=== PATIENT | female | born 1940 | race Caucasian/White ===

== ENCOUNTER 2024-12-27 09:10 | Outpatient (AMB) | payer MEDICARE, SELFPAY ==
--- NOTE | 2024-12-27 09:34 | AM.OFFWIN_ITS ---
Intake Vital Signs 12/27/24 09:41 Height 5 ft 5 in Weight 143 lb 6 oz BMI 23.9 BP 112/67 Blood Pressure Location Rt brachial Position Sitting Respiration 12 Pulse 76 Pulse Source Pulse Oximeter Temp 97.6 F Temp Source Oral Pulse Oximetry (%) 97 Oxygen Delivery Method Room Air Intake Visit Reasons: Pain right arm Intake Note: Patient c/o right arm can't move in the morning since September. Patient Tobacco Use Status: Never used Tobacco Juice Weigher Required: No Allergies codeine Allergy (Severe, Verified 12/27/24 09:50) Unknown tramadol Allergy (Severe, Verified 12/27/24 09:50) Unknown Medication List - Last Reconciled 12/27/24 by Sandra Jeffers, [employer] SERVICE ATTENDANT- albuterol sulfate 90 mcg/actuation 2 puffs inhalation Q4H PRN chlorthalidone 12.5 mg PO QAM levothyroxine 112 mcg PO DAILY lisinopril 30 mg PO DAILY omeprazole 40 mg PO DAILY umeclidinium-vilanterol 62.5-25 mcg/actuation (Anoro Ellipta) 1 ea inhalation DAILY Do you need a note to return to daycare/school/sports/work: No HPI HPI Comments History of Present Illness Details History of Present Illness - The patient is an 84-year-old female w ith HTN presenting with right arm inability to move since Sep with no overt injury. - She reports stiffness of the right upp er arm early in the morning, improving as the day progresses. - Onset of symptoms began in September, w ith no associated injury, though overuse from frequent word game activities?two to three hours per day?is considered. - Patient reports some discomfort in the left arm, but it's less significant. - She hasn?t used medications specifical ly for this issue. Denies any assoc or alarming sx. Also c/o runny nose d/t allergies. Wonders what she can take OTC. HTN well controlled on current meds. Physical Exam General: Well developed, well nourished, in no acute distress. Appears stated age. Accompanied by Dtr Head: Normocephalic, atraumatic. Eyes: Pupils are equal, round and reactive to light and accommodation. Conjunctivae are clear. Vision grossly normal. Musculoskeletal: BUE neurovasc intact, L arm: Tenderness noted at the biceps insertion as it goes into the deltoid. Limited range of motion in the right shoulder, active w/ passive. Normal strength and tone, No swelling, redness, or effusions in other joints. Limited mobility of the L shoulder about the same, but she does not offer pain. Discussion Notes I discussed that the patient's symptoms are consistent with adhesive capsulitis, likely due to a combination of factors including age, overuse, and possible inflammation. I explained that adhesive capsulitis results in stiffness and pain in the shoulder joint and is common in individuals of her demographic. I reviewed potential interventions, advising a cortisone injection for anti- inflammatory relief along with physical therapy to improve range of motion and prevent further joint stiffness. I recommended visiting [facility] for the injection and suggested [facility]. I ensured she understood that the injection could quickly reduce inflammation, while physical therapy would sustain the improvements. We also discussed the use of Voltaren for short-term discomfort relief, though it wouldn't address the underlying cause. Regarding her nasal allergy symptoms, I suggested Flonase as an effective treatment option. I encouraged her to print any referrals to ensure timely appointments and provided contact details for [facility] for convenient access. Assessment and Plan 1. Adhesive Capsulitis (Frozen Shoulder) The diagnosis involves significant joint stiffness likely as a result of adhesive capsulitis. The plan includes a cortisone injection at [facility] to decrease inflammation, complemented with physical therapy to enhance arm mobility and prevent joint stiffness recurrence. We noted the potential temporary benefit of Voltaren for managing discomfort. 2. Nasal Allergies The patient exhibits classic symptoms of nasal allergies. Flonase is recommended to manage nasal congestion effectively. I emphasized compliance despite personal reluctance toward medications to ensure symptom control. 3. HTN cont meds Patient Instructions - Consider visiting [facility] for a cortisone injection. They have a walk-in clinic; call ahead to confirm hours. - Start physical therapy to help improve the shoulder condition. Follow up directly with [facility] for scheduling. - Use Voltaren cream at home as needed f or minor pain relief. - For nasal allergies, use Flonase nasal spray daily. Consent Patient was informed and verbally consented to the use of an ambient scribe for clinic note documentation during this visit. [facility] Social History Patient Tobacco Use Status: Never used Tobacco Physical Exam Vital Signs: Last Vital Signs Temp 97.6 F 12/27/24 09:41 Pulse 76 12/27/24 09:41 Resp 12 12/27/24 09:41 BP 112/67 12/27/24 09:41 Pulse Ox 97 12/27/24 09:41 Oxygen Delivery Method Room Air 12/27/24 09:41 BMI result Body Mass Index 23.9 Assessment & Plan Assessment & Plan (1) Frozen shoulder syndrome: Code(s): M75.00 - Adhesive capsulitis of unspecified shoulder Qualifiers: Laterality: right Qualified Code(s): M75.01 - Adhesive capsulitis of right shoulder (2) Allergic rhinitis: Code(s): J30.9 - Allergic rhinitis, unspecified Qualifiers: Allergic rhinitis trigger: other Allergic rhinitis seasonality: seasonal Qualified Code(s): J30.89 - Other allergic rhinitis (3) HTN (hypertension): Code(s): I10 - Essential (primary) hypertension Qualifiers: Hypertension type: primary hypertension Qualified Code(s): I10 - Essential (primary) hypertension Plan . Orders: Orders PT Evaluation and Treatment Today M75.00 - Adhesive capsulitis of unspecified shoulder Patient Instructions: [facility] [address] [place] [address] call for the walk in clinic and go there for cortisone injection Patient Instructions - Consider visiting [facility] for a cortisone injection. They have a walk-in clinic; call ahead to confirm hours. - Start physical therapy to help improve the shoulder condition. Follow up directly with [facility] for scheduling. - Use Voltaren cream at home as needed for minor pain relief. - For nasal allergies, use Flonase nasal spray daily. Coding Level of Care Code Est Pt Level 4 (77904) Diagnoses Adhesive capsulitis of right shoulder M75.01 Laterality: right Seasonal allergic rhinitis due to other allergic trigger J30.89 Allergic rhinitis trigger: other Allergic rhinitis seasonality: seasonal Primary hypertension I10 Hypertension type: primary hypertension
[2024-12-27 09:41] VITALS: BP 112/67; PULSE 76; RESP 12; TEMP 36.4; O2SAT 97; BMI 23.9
== END 2024-12-27 10:05 | disposition home or self-care (01) ==
PROVIDERS: Visit Provider Nurse Practitioner Family
DX: M75.01 Adhesive capsulitis of right shoulder (principal); J30.89 Other allergic rhinitis; I10 Essential (primary) hypertension

== ENCOUNTER → 2024-12-27 09:10 | Outpatient (BNVA) | payer MEDICARE, SELFPAY | DX: M75.01 Adhesive capsulitis of right shoulder (principal); J30.89 Other allergic rhinitis; I10 Essential (primary) hypertension | CPT/HCPCS: 99212 ==

== ENCOUNTER 2025-04-19 11:08 | Outpatient (AMB) | payer MEDICARE, SELFPAY ==
--- NOTE | 2025-04-19 11:13 | A.OFFPC_ITS ---
Vital Signs 04/19/25 11:21 Height 5 ft 5 in Weight 135 lb 2 oz BMI 22.5 BP 108/59 L Blood Pressure Location Lt brachial Position Sitting Respiration 16 Pulse 76 Pulse Source Pulse Oximeter Temp 97.7 F Temp Source Oral Pulse Oximetry (%) 95 Oxygen Delivery Method Room Air Intake Visit Reasons: est care/medication refill/Thyroid issues Intake Note: patient here for new patient visit, she needs med refills and has thyroid issues Nurse Midwife Required: No Accompanied by: Daughter Is last menstrual period known: No Post menopausal: No Patient : No Allergies codeine Allergy (Severe, Verified 04/19/25 11:32) Unknown tramadol Allergy (Severe, Verified 04/19/25 11:32) Unknown Medication List - Last Reconciled 04/19/25 by Clotilde Villarreal CNP albuterol sulfate 90 mcg/actuation 2 puffs inhalation Q4H PRN chlorthalidone 12.5 mg PO QAM levothyroxine 112 mcg PO DAILY lisinopril 30 mg PO DAILY omeprazole 40 mg PO DAILY umeclidinium-vilanterol 62.5-25 mcg/actuation (Anoro Ellipta) 1 ea inhalation DAILY Tobacco use date assessed: 04/19/25 Fall risk assessment: No Falls in past year Last assessed Fall Risk: 04/19/25 Dental Screening Dental Screen Date: 04/19/25 Did you have a dental visit in the last 12 months?: Yes Did you have a dental problem in the last 6 months where you did not have access to dental care?: No Was dental information given to patient?: Patient has dentist HPI HPI Comments History of Present Illness Details 85-year-old female, accompanied by her abi yuan, presents [facility]. She admits to taking her medications as prescribed without adverse reactions. Prior PCP? - Dr. George Last office visit/CPE/labs - 9-12 months ago Acute issue(s) - She reports right ear congestion and i mpaired hearing. Her symptoms have been ongoing intermittently since the beginning of February Past Medical History - HTN, radioactive iodine therapy for hy perthyroidism, post LOPEZ hypothyroidism, COPD, GERD, arthritis right knee, dupuytren's contracture both hands, esophageal surgery to correct GERD Surgical History - Dupuytren's contracture release both h ands, surgery of esophagus to improve GERD (? fundoplication) Family History - PGM: Mental illness (unknown...was hos pitalized) Social History - Former smoker, smoked less than 10 gracy ly, quit 15 years ago. Does not vape. She has never drank alcohol. Denies recreational drug use - Has been making healthy dietary choice s. Active but does not exercise. Generally sleep well Health maintenance - Last eye exam was [address] Manav Lopez. Advise to sign release for her PCP to obtain her ophthalmology record - Last dental visit was 5 months ago - Last tetanus vaccine was more than 10 years ago; will receive Tdap at her next visit for blood work - She notes that she is up-to-date on e shingles and PNA vaccines. Record not currently available - She notes that she is up-to-date on e flu vaccine - Last pap smear test was 15 years ago w [facility]: normal. She no longer performs pap smear test - Last mammogram was 15 years ago with [facility]: normal. She no longer performs mammogram - Last colonoscopy was 15 years ago with [facility]: normal. She no longer performs colonoscopy - Last dexa scan was 15 years ago with [facility]: normal. Dexa scan ordered Specialists - [facility] - yearly [facility] Medical History (Updated 04/19/25 @ 12:31 by Clotilde Villarreal CNP) Arthritis of right knee Dupuytren's contracture of both hands Acid reflux H/O thyroid disease COPD (chronic obstructive pulmonary disease) Family History (Updated 04/19/25 @ 11:21 by Maci Raza MA) Paternal Grandfather FH: mental illness Social History (Updated 04/19/25 @ 11:21 by Maci Raza MA) Housing: House Patient Tobacco Use Status: Never used Tobacco e-Cigarette/Vaping Use: Never Used Second Hand Smoke Exposure: No service: No Current occupational status: retired Current occupational exposures/hazards: No Cognitive needs: No Hearing needs: No Vision needs: Yes Questionnaire PHQ-9 Over the last 2 weeks, how often have you been bothered by any of the following problems? 1. Little interest or pleasure in doing things: not at all 2. Feeling down, depressed, or hopeless: not at all 3. Trouble falling or staying asleep, or sleeping too much: not at all 4. Feeling tired or having little energy: several days 5. Poor appetite or overeating: several days 6. Feeling bad about yourself - or that you are a failure or have let yourself or your family down: not at all 7. Trouble concentrating on things, such as reading the newspaper or watching television: not at all 8. Moving or speaking so slowly that other people could have noticed. Or the opposite - being so fidgety or restless that you have been moving around a lot more than usual: not at all 9. Thoughts that you would be better off or of hurting yourself in some way: not at all Total score: 2 Depression Screening Interpretation: Negative Depression Screening Done: Yes 40242 - PHQ-9 Billing: Yes Source: Developed by Drs. Alex Macias, Deanne Cameron, Freddy Fish and colleagues, with an educational josh from [employer] Thrive Questionnaire Date Thrive assessed: 04/19/25 I am a: Parent/Caregiver What is your living situation today?: I have a steady place to live Within the past 12 months, did the food you bought not last and you didn't have the money to get more?: Never true Within the past 12 months, did you worry whether your food would run out before you got money to buy more?: Never true Do you have trouble paying for medicines?: No Do you have trouble getting transportation to medical appointments?: No Do you have trouble paying your heating and electricity bill?: No Do you have trouble taking care of your child, family member or friend?: No Do you have trouble with day-to-day activities such as bathing, preparing meals, shopping, managing finances, etc.?: No Are you currently unemployed and looking for a job?: No Are you interested in more education?: No Please select the resources that you would like help with: None Currently or been in a relationship where the following occur: No concerns reported THRIVE Score: 0 AUDIT C Alcohol Use Questionnaire (AUDIT-C) 1. How often do you have a drink containing alcohol?: Never 3. How often do you have six or more drinks on one occasion?: Never Total Score: 0 Score Reviewed/Action Taken: Yes CLAUDE-7 AMB Questionnaire CLAUDE-7 Date CLAUDE - 7 assessed: 04/19/25 Feeling nervous, anxious, or on edge: 0 = Not at all Not being able to stop or control worryin = Not at all Worrying too much about different things: 0 = Not at all Trouble relaxin = Not at all Being so restless that it is hard to sit still: 0 = Not at all Becoming easily annoyed or irritable: 0 = Not at all Feeling afraid as if something awful might happen: 0 = Not at all Total CLAUDE-7 score (0-4 normal; 5-9 mild; 10-14 moderate; 15-21 severe): 0 Source: Developed by Drs. Alex Macias, Deanne Cameron, Freddy Fish and colleagues, with an educational josh from [employer] CLAUDE-7 Assessment Billing CLAUDE-7 Assessment Tool: CLAUDE-7 Assessment 24614 Review of Systems Const Details: Denies chills, Denies fatigue, Denies fever(s), Denies headache(s) and Denies weakness HEENT Denies right ear congestion and impaired hearing, Denies change in vision, Denies dizziness, Denies headache(s), Denies hearing loss, Denies nasal congestion, Denies sinus pain, Denies sinus pressure and Denies sore throat Card Denies chest pain, Denies lightheadedness, Denies dyspnea and Denies other (palpitations) Resp Denies cough, Denies dyspnea and Denies wheezing GI Denies abdominal pain, Denies melena, Denies hematochezia, Denies change in bowel habits, Denies dyspepsia and Denies nausea Denies hematuria and Denies dysuria Musc Denies abnormal gait, Denies myalgias, Denies arthralgias, Denies numbness and Denies tingling Skin/Breast Denies rash, Denies unusual bruising and Denies wounds Neuro Denies abnormal gait, Denies dizziness, Denies headache(s), Denies memory loss, Denies numbness, Denies Sensory deficit (Neuro), Denies tingling and Denies weakness Psych Denies anxiety, Denies depression and Denies memory loss Endo Denies cold intolerance, Denies fatigue, Denies heat intolerance, Denies polydipsia and Denies polyuria Osmany/Lymph Denies easy bleeding and Denies easy bruising Aller/Immun Denies wheezing Physical exam (Primary Care) Vital Signs: Last Vital Signs Temp 97.7 F 04/19/25 11:21 Pulse 76 04/19/25 11:21 Resp 16 04/19/25 11:21 BP 108/59 L 04/19/25 11:21 Pulse Ox 95 04/19/25 11:21 Oxygen Delivery Method Room Air 04/19/25 11:21 BMI result Body Mass Index 22.5 Tobacco/Smoking Status: Tobacco use Status Tobacco use date assessed 04/19/25 04/19/25 11:27 Patient Tobacco Use Status Never used Tobacco 04/19/25 11:21 e-Cigarette/Vaping Use Never Used 04/19/25 11:27 PHQ-9: PHQ-9 Score PHQ-9: Total score 2 04/19/25 11:17 Depression Screening Interpretation: Negative Thrive Assessment: Date of Thrive Assessment Date Thrive assessed 04/19/25 04/19/25 11:17 Currently or been in a relationship where the following occur: No concerns reported Const Other: General: no acute distress, well developed, alert and awake Nutritional Appearance: well nourished Orientation/consciousness: patient oriented x3 HENMT Head: Yes normocephalic and Yes atraumatic Ears: hearing grossly normal bilaterally and TM's normal bilaterally General nose exam: Normal external nose present and Normal nares present Mouth: Normal oral and palatal mucosa present and moist mucous membranes Teeth and gingiva: dentition normal Throat: Yes oropharynx normal Eyes Pupils: Equal, round and reactive pupils present and Pupil accommodation reflex normal EOM: EOMs intact bilaterally Neck Neck: Yes normal visual inspection, Yes no lymphadenopathy and Yes trachea midline Thyroid: Thyroid normal Carotids: no bruits Lymphatic: no lymphadenopathy noted Chest Chest palpation & inspection: normal inspection of the chest Resp Effort & Inspection: normal respiratory effort Auscultation: clear to auscultation bilaterally Cardio Rate: regular rate Rhythm: regular rhythm Heart sounds: S1 normal heart sound present, S2 normal heart sound present, no gallops, no murmurs and no rubs Bruits: no abdominal aortic bruits and no carotid bruits GI Palpation (GI): No Abdominal aortic bruit present, Soft to palpation, nontender, No hepatosplenomegaly present and No Rebound tenderness present Auscultation: normal bowel sounds General: Yes no CVA tenderness Back/Spine/Pelvis Back: no CVA tenderness Cervical Spine: cervical ROM normal and No Cervical spine tenderness Thoracic/Lumbar Spine: thoraco-lumbar ROM normal, No pain with thoraco-lumbar ROM, No thoracic spinal tenderness and No lumbar spinal tenderness Skin General: warm and dry. Normal skin color. Normal skin turgor Lesions: no lesions Rashes: no rashes Trauma: no lacerations or abrasions Wounds: no wounds Nails: normal Neuro General: patient oriented x3, gait normal and CN's II-XI intact bilaterally Cranial nerves: Yes Equal, round and reactive pupils present Cognition (Neuro): normal cognition Gait exam (Neuro): Normal gait present Motor exam (neuro): 5/5 motor strength present throughout Sensory Exam: No Sensory deficit (Neuro) Deep tendon reflexes (DTR's): Right patellar reflex intensity grade: 2+ and Left patellar reflex intensity grade: 2+ Extrem General: Yes normal to inspection, No edema and No calf tenderness Psych Appearance: grossly normal Affect: normal affect Attitude: cooperative Thought process: Normal thought process present Coding Level of Care Code New Pt Level 4 (14022) New Pt Prev Care >65yr (04628) Diagnoses Normal physical examination, routine Z00.00 Primary hypertension I10 Hypertension type: primary hypertension Congestion of right ear H93.8X1 Age-related osteoporosis without current pathological fracture M81.0 Laboratory tests ordered as part of a complete physical exam (CPE) Z00.00 Additional Codes CLAUDE-7 Assessment Billing - CLAUDE-7 Assessment Tool: CLAUDE-7 Assessment 90763 ([id number]) PHQ-9 - 70905 - PHQ-9 Billing: Yes ([id number]) Assessment & Plan Assessment & Plan (1) Normal physical examination, routine: Code(s): Z00.00 - Encounter for general adult medical examination without abnormal findings Category: Medical Plan: No significant functional limitation. Continue current treatment regimen. Healthy diet and routine exercise encouraged. Fast for 10-12 hours, may drink water, and perform blood work at least a few days before next visit. Follow-up for telehealth visit in 2-4 weeks for labs review. Return sooner with symptoms or concerns. Verbalized understanding and agreed with the plan. (2) HTN (hypertension): Code(s): I10 - Essential (primary) hypertension Category: Medical Qualifiers: Hypertension type: primary hypertension Qualified Code(s): I10 - Essential (primary) hypertension Plan: Blood pressure is 108/59, within goal of less than 140/90. Continue current treatment regimen. Low-sodium diet encouraged. Will continue to monitor. Verbalized understanding and agreed with the plan. (3) Congestion of right ear: Code(s): H93.8X1 - Other specified disorders of right ear Category: Medical Plan: Reports right ear congestion and impaired hearing. Her symptoms have been ongoing intermittently since the beginning of February. Normal exam of the right ear; no cerumen, TM is normal. Likely allergies. Will trial Zyrtec 10 mg daily; advised to take as prescribed. Follow-up with worsening or new symptoms. May refer to ENT. Verbalized understanding and agreed with the plan. (4) Age-related osteoporosis without current pathological fracture: Code(s): M81.0 - Age-related osteoporosis without current pathological fracture Category: Medical Plan: Last dexa scan was 15 years ago with [facility]: normal. Dexa scan ordered. (5) Laboratory tests ordered as part of a complete physical exam (CPE): Code(s): Z00.00 - Encounter for general adult medical examination without abnormal findings Category: Medical Plan: Fasting labs ordered as part of a complete physical exam. Advised to fast for at least 10 hours before getting labs drawn. May drink water Verbalized understanding and agreed with treatment plan. Orders: Orders Microalbumin, Random (w Creat) Today Z00.00 - Encounter for general adult medical examination without abnormal findings UA CC w/rflx Micro + Cult Today Z00.00 - Encounter for general adult medical examination without abnormal findings XR DEXA axial skeleton Today M81.0 - Age-related osteoporosis without current pathological fracture Complete Blood Count Auto Diff Today Z00.00 - Encounter for general adult medical examination without abnormal findings Comprehensive [place]. Panel Fast Today Z00.00 - Encounter for general adult medical examination without abnormal findings Lipid Panel Today Z00.00 - Encounter for general adult medical examination without abnormal findings TSH reflex Free T4 Today Z00.00 - Encounter for general adult medical examination without abnormal findings Vitamin D 25-OH Total Today Z00.00 - Encounter for general adult medical examination without abnormal findings Medications: New cetirizine (Zyrtec) 10 mg PO DAILY 30 tabs 0RF 30 days Changed From chlorthalidone 12.5 mg PO QAM To chlorthalidone 12.5 mg (1/2 x 25 mg) PO QAM 45 tabs 1RF 90 days From lisinopril 30 mg PO DAILY To lisinopril 30 mg PO DAILY 90 tabs 1RF 90 days From omeprazole 40 mg PO DAILY To omeprazole 40 mg PO DAILY 90 caps 1RF 90 days From levothyroxine 112 mcg PO DAILY To levothyroxine 112 mcg PO DAILY 90 tabs 1RF 90 days
[2025-04-19 11:21] VITALS: BP 108/59; PULSE 76; RESP 16; TEMP 36.5; O2SAT 95; BMI 22.5
--- OUTSIDE RECORDS SUMMARY | 2025-04-19 12:04 | XMS_ITS ---
Author Name [facility] Organization Unknown Care Team Organization Name Specialty Phone Email Start Date End Da te [facility] Termed, PROVIDER Primary Care 07/02/202203/25
== END 2025-04-19 12:04 | disposition home or self-care (01) ==
LOC: HO.HMCFM 11:09
PROVIDERS: PCP Nurse Practitioner Family; Visit Provider Nurse Practitioner Family
DX: I10 Essential (primary) hypertension (principal); H93.8X1 Other specified disorders of right ear; M81.0 Age-related osteoporosis without current pathological fracture

== ENCOUNTER → 2025-04-19 11:08 | Outpatient (BNVA) | payer MEDICARE, SELFPAY | PROVIDERS: PCP Nurse Practitioner Family; Visit Provider Nurse Practitioner Family | DX: Z00.00 Encounter for general adult medical examination without abnormal findings (principal); I10 Essential (primary) hypertension; M81.0 Age-related osteoporosis without current pathological fracture; H93.8X1 Other specified disorders of right ear | CPT/HCPCS: 96127; 99202 ==

== ENCOUNTER 2025-04-26 07:50 | Outpatient (REF) | payer MEDICARE, SELFPAY ==
--- OUTSIDE RECORDS SUMMARY | 2025-04-26 07:53 | XMS_ITS ---
Author Name Jill Brower Address Unknown Organization [facility] Providers [facility] [place] Name Role Phone Unavailable Primary Care Physician Unavailab le History Of Present Illness No data Allergies, Adverse Reactions, Alerts Substance RxNorm Reaction(s) Severity Status Start Da te Codeine Sulfate unspecified active traMADol HCl unspecified active Medications Medication Generic Name RxNorm Strength Strength Unit Route Dose Dose Form Frequency Date Started Date Ended Status Indication Sig Anoro Ellipta 62.5-25 mcg/actua tion Inhala tion blist er with devic e active chlorthalid one chlortha lidone 25 mg Oral one half table t once daily active HTN lisinopril 20 mg Oral table t active Clotrimazol e NULL 05/08/20 16 active Doxycycline Hyclate NULL 07/03/20 16 active Erythromyci n NULL 01/29/20 18 active Fluconazole NULL 05/08/20 16 active Latanoprost NULL 06/16/20 13 active Levothyroxi ne Sodium NULL 0.125 mg one table t daily 07/09/20 18 active hypothyroid ism Lisinopril NULL 06/22/20 14 active Nystatin NULL 05/18/20 15 active Omeprazole NULL 11/15/19 17 active Oxycodone-A cetaminophe n NULL 06/22/20 14 active Sulfamethox azole-Trime thoprim NULL 07/09/20 18 active Zostavax NULL 05/08/20 16 active Problems Problem Code Type Status Date of Diagnosis Date of Resolution Patient encounter status (finding) 461513764(S NOMED) Diagnosis active 04/21/2025 Actinic keratosis (disorder) 620516001(S NOMED) Diagnosis active 06/10/2024 Xanthelasma (disorder) 821535162(S NOMED) Diagnosis active 06/10/2024 Seborrheic keratosis (disorder) 694622129(S NOMED) Diagnosis active 06/10/2024 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 (disorder) 049377071(S NOMED) Diagnosis active 06/10/2024 History of malignant neoplasm of skin (situation) 341329750(S NOMED) Diagnosis active 06/10/2024 Epidermoid cyst of skin (disorder) 342595638(S NOMED) Diagnosis active 03/31/2024 Seborrheic keratosis (disorder) 746460318(S NOMED) Diagnosis active 06/19/2023 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 (disorder) (S NOMED) Diagnosis active 06/19/2023 History of malignant neoplasm of skin (situation) 214321478(S NOMED) Diagnosis active 06/19/2023 Xanthoma of eyelid (disorder) 5617378(SNO MED) Diagnosis active 06/06/2022 Seborrheic keratosis (disorder) 476654875(S NOMED) Diagnosis active 06/06/2022 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 (disorder) 522033822(S NOMED) Diagnosis active 06/06/2022 History of malignant neoplasm of skin (situation) 077130723(S NOMED) Diagnosis active 06/06/2022 Patient encounter status (finding) 142238938(S NOMED) Diagnosis active 11/22/2021 Actinic keratosis (disorder) 742552998(S NOMED) Diagnosis active 05/31/2021 Xanthoma of eyelid (disorder) 5139817(SNO MED) Diagnosis active 05/31/2021 History of malignant neoplasm of skin (situation) 868514889(S NOMED) Diagnosis active 05/31/2021 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 (disorder) 070484632(S NOMED) Diagnosis active 05/31/2021 Patient encounter status (finding) 222953730(S NOMED) Diagnosis active 04/12/2021 Patient encounter status (finding) 696498888(S NOMED) Diagnosis active 03/27/2021 Patient encounter status (finding) 928963533(S NOMED) Diagnosis active 12/22/2020 Encounter for procedure for purposes other than remedying health state, unspecified Z41.9(ICD-1 0) Diagnosis active 08/04/2020 Personal history of other malignant neoplasm of skin Z85.828(ICD -10) Diagnosis active 05/25/2020 Other melanin hyperpigmentation L81.4(ICD-1 0) Diagnosis active 05/25/2020 Other seborrheic keratosis L82.1(ICD-1 0) Diagnosis active 05/25/2020 Encounter for procedure for purposes other than remedying health state, unspecified Z41.9(ICD-1 0) Diagnosis active 04/15/2020 Personal history of other malignant neoplasm of skin Z85.828(ICD -10) Diagnosis active 08/05/2019 Hemangioma of skin and subcutaneous tissue D18.01(ICD- 10) Diagnosis active 08/05/2019 Other seborrheic keratosis L82.1(ICD-1 0) Diagnosis active 08/05/2019 Other melanin hyperpigmentation L81.4(ICD-1 0) Diagnosis active 08/05/2019 Encounter for procedure for purposes other than remedying health state, unspecified Z41.9(ICD-1 0) Diagnosis active 05/27/2019 Senile hyperkeratosis (disorder) 981433975(S NOMED) Diagnosis active 12/10/2018 Senile hyperkeratosis (disorder) 231561273(S NOMED) Diagnosis active 07/09/2018 Other specified health status Z78.9(ICD-1 0) Diagnosis active 01/28/2018 Senile hyperkeratosis (disorder) 611090254(S NOMED) Diagnosis active 01/28/2018 Epidermoid cyst of skin (disorder) 944465274(S NOMED) Diagnosis active 06/09/2017 Senile hyperkeratosis (disorder) 459419447(S NOMED) Diagnosis active 05/22/2017 Other specified health status Z78.9(ICD-1 0) Diagnosis active 02/12/2017 Personal history of other drug therapy Z92.29(ICD- 10) Diagnosis active 02/12/2017 Epidermoid cyst of skin (disorder) 554779604(S NOMED) Diagnosis active 02/12/2017 Neoplasm of uncertain behavior of skin (disorder) 67242159(SN OMED) Diagnosis active 11/14/2016 Surgical follow-up (finding) 240633599(S NOMED) Diagnosis active 07/15/2016 Basal cell carcinoma of face (disorder) 842229195(S NOMED) Diagnosis active 07/03/2016 Basal cell carcinoma of face (disorder) 814634132(S NOMED) Diagnosis active 05/24/2016 Neoplasm of uncertain behavior of skin (disorder) 41581486(SN OMED) Diagnosis active 05/08/2016 Disorder of skin pigmentation (disorder) 69008993(SN OMED) Diagnosis active 05/18/2015 Senile hyperkeratosis (disorder) 321384692(S NOMED) Diagnosis active 02/02/2015 Solar lentigo (disorder) 75490768(SN OMED) Diagnosis active 06/22/2014 Gastroesophageal reflux disease (disorder) 654051432(S NOMED) Problem active Arthritis (disorder) 1220832(SNO MED) Problem active Chronic obstructive pulmonary disease (disorder) 98476713(SN OMED) Problem active Gastroesophageal reflux disease (disorder) 295023878(S NOMED) Problem active Hypothyroidism (disorder) 16362338(SN OMED) Problem active Actinic keratosis (disorder) 431560860(S NOMED) Problem active Basal cell carcinoma of skin (disorder) 927545311(S NOMED) Problem active Results No data Encounters Service provided at [facility], [address] [place] [address] [phone]. Office phone number is [phone]. Office fax number is [phone]. Encounter Diagnosis Location Date / Time Type Cosmetic (Z41.9) [facility] 04/21/2025 17:00:00 [facility] Reason For Referral No data Procedures Procedure Date Destruction of premalignant skin lesion (procedure) 06/10/2024 12:00 am UTC Cryotherapy of skin lesion with liquid n itrogen (procedure) 05/31/2021 12:00 am [place] Documentation of past medical history (p rocedure) Documentation of past medical history (p rocedure) Documentation of past medical history (p rocedure) Documentation of past medical history (p rocedure) Documentation of past medical history (p rocedure) Documentation of past medical history (p rocedure) Documentation of past medical history (p rocedure) Documentation of past medical history (p rocedure) Documentation of past medical history (p rocedure) Documentation of past medical history (p rocedure) Documentation of past medical history (p rocedure) Documentation of past medical history (p rocedure) Documentation of past medical history (p rocedure) Documentation of past medical history (p rocedure) Documentation of past medical history (p rocedure) Documentation of past medica l history (procedure) Duptrenes surgery Esophageal dilation x 2 Review Of Systems No Data Assessment 1.CosmeticOther (Cosmetic) Plan of Care No data Instructions No Data Social History Code Activity Start Date End Date 0645519 (SNOMED) Former smoker Sex female Sexual orientation Unspecified Gender identity Unspecified Vital Signs No data
[2025-04-26 11:07] LABS: MANUAL DIFF FLAG NO
[2025-04-26 11:12] LABS: Hematocrit 38.9 % (37.0-47.0); Hemoglobin 12.7 g/dl (12.0-16.0); Imm Gran Abs Auto 0.02 X10*3/uL (0.00-0.03); Imm Gran Pct Auto 0.4 % (0.0-0.4); Lymphocytes Absolute Auto 1.3 X10*3/uL (1.2-4.9); Mean Corpuscular HGB Conc 32.6 g/dl (31.0-35.0); Mean Corpuscular Hemoglobin 28.0 pg (27.0-33.0); Mean Corpuscular Volume 85.9 fL (80.0-98.0); NRBC Abs Auto 0.000 X10*3/uL (0.0-0.012); NRBC Pct Auto 0.0 /100WBC (0.0-0.2); Platelet Count 283 X10*3/uL (160-400); Red Blood Count 4.53 X10*6/uL (4.20-5.50); White Blood Count 5.6 X10*3/uL (4.8-10.8)
[2025-04-26 11:19] LABS: Appearance Urine Clear; Glucose Urine UA Negative (Negative); PH 6.0 (5.0-9.0); Specific Gravity - Urine 1.015 (1.005-1.025); UMIC TRIGGER UACC YES
[2025-04-26 11:31] LABS: UACC Culture Trigger YES
[2025-04-26 11:55] LABS: Microalbum/Creatinine Ratio Ur 30.4 ug/mg cr (<30)
[2025-04-26 12:30] LABS: Alanine Aminotransferase 34 U/L (0-31); Albumin Level 3.9 g/dL (3.5-5.0); Alkaline Phosphatase 69 U/L (39-117); Anion Gap 12 (12-20); Aspartate Amino Transferase 45 U/L (5-31); Blood Urea Nitrogen 22 mg/dL (9-16); Calcium 9.1 mg/dL (8.4-10.2); Carbon Dioxide 25 mmol/L (22-29); Chloride 106 mmol/L (96-108); Cholesterol 216 mg/dL (<200); Estimated Glomerular Filt Rate 46; HDL Cholesterol 42 mg/dL (>40); Potassium 3.7 mmol/L (3.3-5.1); Sodium 139 mmol/L (135-145); Total Protein 7.8 g/dL (6.5-8.0); Triglycerides 112 mg/dL (<150)
== END 2025-04-26 07:51 | disposition home or self-care (01) ==
LOC: HO.WFDLDS 07:50
PROVIDERS: Visit Provider Nurse Practitioner Family
DX: Z00.00 Encounter for general adult medical examination without abnormal findings (principal); Z13.6 Encounter for screening for cardiovascular disorders; Z13.29 Encounter for screening for other suspected endocrine disorder
CPT/HCPCS: 36415; 80053; 80061; 81001; 82043; 82306; 82570; 84443; 85025; 87086

== ENCOUNTER 2025-05-17 13:28 | Outpatient (AMB) | payer MEDICARE, SELFPAY ==
--- NOTE | 2025-05-17 13:17 | A.OFFPC_ITS ---
Intake Visit Reasons: Tele 2-4 wks labs [phone] landline Intake Note: patient here for 2-4 wks Telehealth follow up for lab review Hospital Staff Pharmacist Required: No Is last menstrual period known: No Post menopausal: No Patient : No Allergies codeine Allergy (Severe, Verified 05/17/25 13:17) Unknown tramadol Allergy (Severe, Verified 05/17/25 13:17) Unknown Tobacco use date assessed: 05/17/25 Fall risk assessment: No Falls in past year Last assessed Fall Risk: 05/17/25 Dental Screening Dental Screen Date: 05/17/25 Did you have a dental visit in the last 12 months?: Yes Did you have a dental problem in the last 6 months where you did not have access to dental care?: No Was dental information given to patient?: Patient has dentist HPI HPI Comments History of Present Illness Details 85-year-old female presents for a telehe alth visit for review of recent lab results. She was evaluated at the [facility] ED last week week because i wasn't feeling well. She was was admitted for 1 night and discharged home. Chlorthalidone was discontinued. She notes that her labs were unrevealing. She feels better now. No acute symptoms at this time. Review of 05/13/2025 [facility] discharge summary revealed the following: Patient presents to the emergency department with complaints of dizziness, nausea, and feeling generally unwell. She was hemodynamically stable. She had mild hyponatremia with a sodium of 130. Failed ambulation trial in emergency department, admitted to the general medicine service for hyponatremia and physical therapy for generalized weakness. Potassium was slightly low, 3.2. Chlorthalidone was discontinued. The following day, patient was seen by PT and was cleared to go home. She was discharged home on potassium supplements for 3 days. Advised to follow-up with her PCP to repeat BMP. [facility] Medical History (Updated 05/17/25 @ 15:40 by Clotilde Villarreal CNP) Arthritis of right knee Dupuytren's contracture of both hands Acid reflux H/O thyroid disease COPD (chronic obstructive pulmonary disease) Family History (Updated 04/19/25 @ 11:21 by Maci Raza MA) Paternal Grandfather FH: mental illness Social History (Updated 04/19/25 @ 11:21 by Maci Raza MA) Housing: House Patient Tobacco Use Status: Never used Tobacco e-Cigarette/Vaping Use: Never Used Second Hand Smoke Exposure: No Patient : No service: No Current occupational status: retired Current occupational exposures/hazards: No Cognitive needs: No Hearing needs: No Vision needs: Yes Questionnaire Thrive Questionnaire Date Thrive assessed: 04/19/25 I am a: Parent/Caregiver What is your living situation today?: I have a steady place to live Within the past 12 months, did the food you bought not last and you didn't have the money to get more?: Never true Within the past 12 months, did you worry whether your food would run out before you got money to buy more?: Never true Do you have trouble paying for medicines?: No Do you have trouble getting transportation to medical appointments?: No Do you have trouble paying your heating and electricity bill?: No Do you have trouble taking care of your child, family member or friend?: No Do you have trouble with day-to-day activities such as bathing, preparing meals, shopping, managing finances, etc.?: No Are you currently unemployed and looking for a job?: No Are you interested in more education?: No Please select the resources that you would like help with: None Currently or been in a relationship where the following occur: No concerns reported THRIVE Score: 0 AUDIT C Alcohol Use Questionnaire (AUDIT-C) 2. How many drinks containing alcohol do you have on a typical day when you are drinking?: 1 or 2 3. How often do you have six or more drinks on one occasion?: Never Total Score: 0 CLAUDE-7 AMB Questionnaire CLAUDE-7 Date CLAUDE - 7 assessed: 04/19/25 Source: Developed by Drs. Alex Macias, Deanne Cameron, Freddy Fish and colleagues, with an educational josh from [employer]. Review of Systems Const Details: Denies chills, Denies fatigue, Denies fever(s), Denies headache(s) and Denies weakness Cardiac Denies chest pain, Denies claudication, Denies leg edema, Denies lightheadedness, Denies palpitations, Denies dyspnea, Denies dyspnea on exertion, Denies orthopnea and Denies other (Loss of consciousness) Resp Denies cough, Denies excessive phlegm production, Denies dyspnea, Denies dyspnea on exertion, Denies snoring and Denies wheezing Physical exam (Primary Care) Tobacco/Smoking Status: Tobacco use Status Tobacco use date assessed 05/17/25 05/17/25 13:19 Patient Tobacco Use Status Never used Tobacco 05/17/25 13:19 e-Cigarette/Vaping Use Never Used 05/17/25 13:19 Thrive Assessment: Date of Thrive Assessment Date Thrive assessed 04/19/25 05/17/25 13:19 Currently or been in a relationship where the following occur: No concerns reported Const Other: Patient is alert and oriented x3 Telehealth Telehealth Telehealth Platform: Telephone Location of provider rendering services: practice address Location of patient: address on file Patient Identification confirmed using: Name, : Yes Telehealth method: voice only Patient verbally consented to treatment: Yes Patient verbally consented to billing insurance company: Yes Patient informed of any privacy concerns related to visit: Yes Coding Level of Care Code Tele Est Pt Level 3 (01123) Diagnoses Hypercholesterolemia E78.00 Vitamin D deficiency E55.9 Transaminitis R74.01 Microalbuminuria R80.9 Hospital discharge follow-up Z09 Time Spent (min) 30 Assessment & Plan Assessment & Plan (1) Hypercholesterolemia: Code(s): E78.00 - Pure hypercholesterolemia, unspecified Category: Medical Plan: Recent total cholesterol and LDL levels are elevated, 216 and 152 respectively, triglycerides and HDL levels are normal. Advised to limit foods high in saturated fat and avoid foods high in trans fat. Routine exercise encouraged. Fast for 10-12 hours, may drink water, and perform lipid panel blood work a few days before next visit. Follow-up in 2 months for hypertension and labs review. Return sooner with symptoms or concerns. Verbalized understanding and agreed with the plan (2) Vitamin D deficiency: Code(s): E55.9 - Vitamin D deficiency, unspecified Category: Medical Plan: Recent vitamin-D level is significantly low, 9.9. Vitamin D3 1250 mcg weekly was ordered started earlier this month. She notes she has not started taking the medication. Advised to start taking the medication as prescribed. Will recheck vitamin D level in 2 months. Verbalized understanding and agreed with the plan. (3) Transaminitis: Code(s): R74.01 - Elevation of levels of liver transaminase levels Category: Medical Plan: Recent AST and ALT levels slightly elevated, 45 and 34 respectively. She reports history of elevated liver enzymes. Hepatic steatosis is possible. Routine exercise and diet/weight management encouraged. Will recheck lipid panel in 2 months. Verbalized understanding and agreed with the plan. (4) Microalbuminuria: Code(s): R80.9 - Proteinuria, unspecified Category: Medical Plan: Recent urine microalbumin/creatinine ratio is slightly elevated, 30.4. Likely dehydration. Adequate hydration encouraged. Will recheck urine microalbumin in 2 months. Verbalized understanding and agreed with the plan. (5) Hospital discharge follow-up: Code(s): Z09 - Encounter for follow-up examination after completed treatment for conditions other than malignant neoplasm Category: Medical Plan: No acute symptoms at this time. Continue current treatment regimen. Will repeat BMP next week. Follow-up with symptoms or concerns. Verbalized understanding and agreed with the plan. Orders: Orders Liver Panel 2 Months R74.01 - Elevation of levels of liver transaminase levels Vitamin D 25-OH Total 2 Months E55.9 - Vitamin D deficiency, unspecified Microalbumin, Random (w Creat) 2 Months R80.9 - Proteinuria, unspecified Lipid Panel 2 Months E78.00 - Pure hypercholesterolemia, unspecified Basic Metabolic Panel 1 Week Z09 - Encounter for follow-up examination after completed treatment for conditions other than malignant neoplasm
== END 2025-05-17 14:00 | disposition home or self-care (01) ==
LOC: HO.HMCFM 13:28
PROVIDERS: PCP Nurse Practitioner Family; Visit Provider Nurse Practitioner Family
DX: E78.00 Pure hypercholesterolemia, unspecified (principal); E55.9 Vitamin D deficiency, unspecified; R74.01 Elevation of levels of liver transaminase levels; R80.9 Proteinuria, unspecified; Z09 Encounter for follow-up examination after completed treatment for conditions other than malignant neoplasm

== ENCOUNTER 2025-07-15 07:39 | Outpatient (REF) | payer MEDICARE, SELFPAY ==
[2025-07-15 11:36] LABS: Appearance Urine Turbid; Glucose Urine UA Negative (Negative); PH 5.5 (5.0-9.0); Specific Gravity - Urine 1.020 (1.005-1.025); UMIC TRIGGER UACC YES
[2025-07-15 12:47] LABS: Microalbum/Creatinine Ratio Ur 8.6 ug/mg cr (<30)
[2025-07-15 13:33] LABS: Alanine Aminotransferase 38 U/L (0-31); Albumin Level 4.0 g/dL (3.5-5.0); Alkaline Phosphatase 72 U/L (39-117); Anion Gap 10 (12-20); Aspartate Amino Transferase 42 U/L (5-31); Blood Urea Nitrogen 12 mg/dL (9-16); Calcium 9.6 mg/dL (8.4-10.2); Carbon Dioxide 28 mmol/L (22-29); Chloride 108 mmol/L (96-108); Cholesterol 216 mg/dL (<200); Estimated Glomerular Filt Rate > 60; HDL Cholesterol 53 mg/dL (>40); Potassium 3.9 mmol/L (3.3-5.1); Sodium 142 mmol/L (135-145); Total Protein 7.8 g/dL (6.5-8.0); Triglycerides 110 mg/dL (<150)
== END 2025-07-15 07:40 | disposition home or self-care (01) ==
LOC: HO.WFDLDS 07:39
PROVIDERS: Visit Provider Nurse Practitioner Family
DX: Z09 Encounter for follow-up examination after completed treatment for conditions other than malignant neoplasm (principal); E78.00 Pure hypercholesterolemia, unspecified; E55.9 Vitamin D deficiency, unspecified; R80.9 Proteinuria, unspecified; R74.01 Elevation of levels of liver transaminase levels
CPT/HCPCS: 36415; 80048; 80061; 80076; 81001; 82043; 82306; 82570

== ENCOUNTER 2025-07-18 09:45 | Outpatient (AMB) | payer MEDICARE, SELFPAY ==
--- NOTE | 2025-07-18 09:49 | MHC.PC.OV ---
Vital Signs 07/18/25 09:54 Height 5 ft 5 in Weight 133 lb 2 oz BMI 22.2 BP 131/67 Blood Pressure Location Rt brachial Position Sitting Respiration 16 Pulse 84 Pulse Source Pulse Oximeter Temp 97.9 F Temp Source Oral Pulse Oximetry (%) 98 Oxygen Delivery Method Room Air Intake Visit Reasons: 2 mos HTN, labs review Intake Note: patient here for follow up on HTN and labs review Underwriting Sales Representative Required: No Is last menstrual period known: No Post menopausal: No Patient : No Allergies codeine Allergy (Severe, Verified 07/18/25 09:53) Unknown tramadol Allergy (Severe, Verified 07/18/25 09:53) Unknown Tobacco use date assessed: 07/18/25 Fall risk assessment: No Falls in past year Last assessed Fall Risk: 07/18/25 Dental Screening Dental Screen Date: 07/18/25 Did you have a dental visit in the last 12 months?: Yes Did you have a dental problem in the last 6 months where you did not have access to dental care?: No Was dental information given to patient?: Patient has dentist HPI HPI Comments History of Present Illness Details 85-year-old female, accompanied by her daughter, presents for hypertension and review of recent lab results. She admits to taking her medications as prescribed without adverse reactions. She did not immediately started taking vitamin D3 1250 mcg and still have one dose life. She notes that she has been making healthy lifestyle changes, including diet and frequent walks. She states that she has never drank alcohol. She offers no complaints and denies acute symptoms at this time. [facility] Medical History (Updated 07/18/25 @ 10:24 by Clotilde Villarreal CNP) NAFLD (nonalcoholic fatty liver disease) Arthritis of right knee Dupuytren's contracture of both hands Acid reflux H/O thyroid disease COPD (chronic obstructive pulmonary disease) Family History (Updated 04/19/25 @ 11:21 by TAVO Palmer) Paternal Grandfather FH: mental illness Social History (Updated 04/19/25 @ 11:21 by TAVO Palmer) Housing: House Patient Tobacco Use Status: Never used Tobacco e-Cigarette/Vaping Use: Never Used Second Hand Smoke Exposure: No service: No Current occupational status: retired Current occupational exposures/hazards: No Cognitive needs: No Hearing needs: No Vision needs: Yes Questionnaire Thrive Questionnaire Date Thrive assessed: 04/19/25 I am a: Parent/Caregiver What is your living situation today?: I have a steady place to live Within the past 12 months, did the food you bought not last and you didn't have the money to get more?: Never true Within the past 12 months, did you worry whether your food would run out before you got money to buy more?: Never true Do you have trouble paying for medicines?: No Do you have trouble getting transportation to medical appointments?: No Do you have trouble paying your heating and electricity bill?: No Do you have trouble taking care of your child, family member or friend?: No Do you have trouble with day-to-day activities such as bathing, preparing meals, shopping, managing finances, etc.?: No Are you currently unemployed and looking for a job?: No Are you interested in more education?: No Please select the resources that you would like help with: None Currently or been in a relationship where the following occur: No concerns reported THRIVE Score: 0 CLAUDE-7 AMB Questionnaire CLAUDE-7 Date CLAUDE - 7 assessed: 04/19/25 Source: Developed by Drs. Alex Macias, Deanne Cameron, Freddy Fish and colleagues, with an educational josh from [employer]. Review of Systems Const Details: Const Denies chills, Denies fatigue, Denies fever(s), Denies headache(s) and Denies weakness ENT Denies dizziness and Denies headache(s) Card Denies chest pain, Denies lightheadedness, Denies dyspnea and Denies other (Palpitations) Resp Denies cough, Denies dyspnea, Denies wheezing and Denies other ( shortness of breath) GI Denies abdominal pain, Denies melena, Denies hematochezia, Denies change in bowel habits, Denies dyspepsia and Denies nausea Denies hematuria and Denies dysuria Musc Denies abnormal gait, Denies myalgias, Denies arthralgias, Denies numbness and Denies tingling Skin/Breast Denies rash, Denies unusual bruising and Denies wounds Neuro Denies abnormal gait, Denies dizziness, Denies headache(s), Denies memory loss, Denies numbness, Denies Sensory deficit (Neuro), Denies tingling and Denies weakness Psych Denies anxiety, Denies depression, Denies memory loss Endo Denies cold intolerance, Denies fatigue, Denies heat intolerance, Denies polydipsia and Denies polyuria Aller/Immun Denies wheezing Physical exam (Primary Care) Tobacco/Smoking Status: Tobacco use Status Tobacco use date assessed 05/17/25 07/18/25 09:52 Patient Tobacco Use Status Never used Tobacco 07/18/25 09:52 e-Cigarette/Vaping Use Never Used 07/18/25 09:52 Thrive Assessment: Date of Thrive Assessment Date Thrive assessed 04/19/25 07/18/25 09:52 Currently or been in a relationship where the following occur: No concerns reported Const Other: General: no acute distress and well developed Nutritional Appearance: well nourished Orientation/consciousness: patient oriented x3 HENMT Head: Yes normocephalic and Yes atraumatic Eyes General: appearance normal, both eyes and all related structures Pupils: Equal, round and reactive pupils present EOM: EOMs intact bilaterally Resp Effort & Inspection: normal respiratory effort Auscultation: clear to auscultation bilaterally Cardio Rate: regular rate Rhythm: regular rhythm Heart sounds: S1 normal heart sound present, S2 normal heart sound present, no gallops, no murmurs and no rubs Extrem General: Yes normal to inspection, No edema and No calf tenderness Skin General: warm and dry. Normal skin color. Normal skin turgor Neuro General: patient oriented x3, gait normal and no focal neuro deficit Cranial nerves: Yes Equal, round and reactive pupils present Cognition (Neuro): normal cognition Gait exam (Neuro): Normal gait present Sensory Exam: No Sensory deficit (Neuro) Psych Appearance: grossly normal Affect: normal affect Attitude: cooperative Thought process: Normal thought process present Coding Level of Care Code Est Pt Level 4 (10244) Diagnoses Primary hypertension I10 Hypertension type: primary hypertension Hypercholesterolemia E78.00 Transaminitis R74.01 Vitamin D deficiency E55.9 Microalbuminuria R80.9 Assessment & Plan Assessment & Plan (1) HTN (hypertension): Code(s): I10 - Essential (primary) hypertension Category: Medical Qualifiers: Hypertension type: primary hypertension Qualified Code(s): I10 - Essential (primary) hypertension Plan: Blood pressure is 131/67, within goal of less than 140/90. Continue current treatment regimen. Low-sodium diet encouraged. Follow-up in 3 months for transfer of care with a new provider within the practice, hypertension, and hypercholesterolemia. Return sooner with symptoms or concerns. Verbalized understanding and agreed with the plan. (2) Hypercholesterolemia: Code(s): E78.00 - Pure hypercholesterolemia, unspecified Category: Medical Plan: Recent total cholesterol and LDL levels are elevated, 216 and 141 respectively, previous levels were 216 and 152 respectively. Triglycerides and HDL levels are normal. Declines medication treatment at this time and will continue to make healthy lifestyle changes. Advised to limit foods high in saturated fat and avoid foods high in trans fat. Routine exercise encouraged. Fast for 10-12 hours, may drink water, and perform lipid panel blood work a few days before next visit. Follow-up in 2 months. Verbalized understanding and agreed with the plan. (3) Transaminitis: Code(s): R74.01 - Elevation of levels of liver transaminase levels Category: Medical Plan: Recent AST and ALT levels are slightly elevated, 42 and 38 respectively, previous levels were 45 and 34 respectively. Her daughter notes history of nonalcohol fatty liver disease. Will monitor liver enzymes and while he or if clinically indicated. Verbalized understanding and agreed with the plan. (4) Vitamin D deficiency: Code(s): E55.9 - Vitamin D deficiency, unspecified Category: Medical Plan: Recent vitamin-D level is normal, 30.6. Previous level was 9.9. She has one dose remaining dose of vitamin D3 1250 mcg weekly. Vitamin D3 50 mcg daily ordered; advised to take as prescribed. Start taking after completion of vitamin D3 1250 mcg. Will monitor vitamin D3 annually or if clinically indicated. Verbalized understanding and agreed with the plan. (5) Microalbuminuria: Code(s): R80.9 - Proteinuria, unspecified Category: Medical Plan: Recent urine microalbumin/creatinine ratio is normal, 8.6, previous level was 30.4. Adequate hydration encouraged. Will monitor annually or if clinically indicated. Verbalized understanding and agreed with the plan. Orders: Orders Lipid Panel 2 Months E78.00 - Pure hypercholesterolemia, unspecified Medications: New cholecalciferol (vitamin D3) 50 mcg PO DAILY 90 tabs 3RF 90 days Discontinued cholecalciferol (vitamin D3) Discontinued Reason: Doctor's Order 1,250 mcg PO QWEEK 8 weeks 8 tabs 0RF
[2025-07-18 09:54] VITALS: BP 131/67; PULSE 84; RESP 16; TEMP 36.6; O2SAT 98; BMI 22.2
== END 2025-07-18 10:23 | disposition home or self-care (01) ==
LOC: HO.HMCFM 09:46
PROVIDERS: PCP Nurse Practitioner Family; Visit Provider Nurse Practitioner Family
DX: I10 Essential (primary) hypertension (principal); E78.00 Pure hypercholesterolemia, unspecified; R74.01 Elevation of levels of liver transaminase levels; E55.9 Vitamin D deficiency, unspecified; R80.9 Proteinuria, unspecified

== ENCOUNTER → 2025-07-18 09:45 | Outpatient (BNVA) | payer MEDICARE, SELFPAY | PROVIDERS: PCP Nurse Practitioner Family; Visit Provider Nurse Practitioner Family | DX: I10 Essential (primary) hypertension (principal); E78.00 Pure hypercholesterolemia, unspecified; R74.01 Elevation of levels of liver transaminase levels; E55.9 Vitamin D deficiency, unspecified; R80.9 Proteinuria, unspecified | CPT/HCPCS: 99212 ==

== ENCOUNTER 2025-07-19 12:12 | Emergency (ER) | payer MEDICARE, SELFPAY ==
--- NOTE | ~2025-07-19 | CT_ITS ---
EXAMINATION: CT SOFT TISSUE NECK WITH CONTRAST CLINICAL INFORMATION: Voice change, pain. COMPARISON: None available. TECHNIQUE: Following the intravenous administration of 100 mL of Omnipaque 350 intravenous contrast, helical imaging was performed in the axial plane with generation of coronal and sagittal reformatted images. This CT examination was performed using dose optimization techniques as appropriate, variously including the following: *Automated exposure control *Adjustment of mA and/or kV according to patient size (this includes techniques or standardized protocols for targeted exams where dose is matched to indication/reason for exam; i.e. extremities or head) *Use of iterative reconstruction technique FINDINGS: Lymph Nodes: -No abnormal lymphadenopathy within the neck. Carotid Sheath Structures: -Moderate to severe bilateral carotid bulb calcifications are present, resulting in an approximate 50-60% stenosis of the right ICA after the origin, and approximately a 30% stenosis of the left ICA. -Subacute jugular veins are patent. Salivary Glands: -Normal. Tongue Base/Floor of Mouth: -Normal Mucosal Space: -Grossly normal without evidence of enhancing mass or inflammation. The epiglottis is normal. The aryepiglottic folds appear normal. The piriform sinuses and vallecula appear normal. -The hypopharyngeal structures appear normal. -The tonsillar pillar soft tissues appear normal. -The soft palate appears normal. Visceral Space: -Thyroid gland: Majority of the thyroid is atrophic. There is a rim calcified nodule in the right inferior thyroid region measuring 1.4 x 1.6 x 1.9 cm. -Larynx: There is medialization of the right true vocal cord, suggesting paresis and/or paralysis. Direct visualization recommended. The left true vocal cord is abducted. The laryngeal ventricle is grossly symmetric. The laryngeal inlet is normal. -The subglottic trachea is normal. -The cervical esophagus is normal. Retropharangeal Space: -Normal. Parapharyngeal Fat Planes: -Normal. Air Vice Marshal Spaces: -Normal. Anterior Cervical Space: -Normal. Imaged Intracranial Contents: -Refer to the dedicated CT head performed concurrently. Globes and Orbits: -Normal. Bilateral lens replacements present. Paranasal Sinuses/Mastoids/Tympanic Spaces: -Normally aerated bilaterally. Lung Apices and Superior Mediastinal Structures: -Refer to the dedicated CT chest performed concurrently. Bony Structures: -No suspicious bone lesions. No fractures. -TM joints demonstrate moderate degenerative changes on the right. -Degenerative changes at the atlantoaxial joint, with mild spondylosis of the cervical spine most significant at C6-7. CT/CT soft tissue neck w IV con IMPRESSION: 1. No acute findings in the neck. No mass or abnormal lymph nodes present. No gross inflammation present. 2. There appears to be medialization of the right true vocal cord, suggesting possible recess or paralysis. Direct visualization recommended if this is a clinical suspicion. 3. Atrophic thyroid gland. There is a peripherally calcified nodule in the right lower thyroid region measuring 1.4 x 1.6 x 1.9 cm. 4. Moderate to severe bilateral carotid bulb calcifications present, resulting in approximate 50-60% ICA stenosis on the right, an approximate 30% stenosis on the left. 5. Additional ancillary findings as discussed in the body of the report. Electronically signed by: Shukri Moeller MD 07/19/2025 03:48 PM [facility]
--- NOTE | ~2025-07-19 | CT_ITS ---
EXAMINATION: CT ANGIOGRAM CHEST CLINICAL INFORMATION: Syncope COMPARISON: None available. TECHNIQUE: Multiple axial images were obtained through the chest after the administration of 65 mL of Omnipaque 350 intravenous contrast. Extensive vascular post-processing including two-dimensional and three-dimensional reformatted images were created and reviewed on an independent workstation. This CT examination was performed using dose optimization techniques as appropriate, variously including the following: *Automated exposure control *Adjustment of mA and/or kV according to patient size (this includes techniques or standardized protocols for targeted exams where dose is matched to indication/reason for exam; i.e. extremities or head) *Use of iterative reconstruction technique FINDINGS: QUALITY OF STUDY/CONTRAST BOLUS: Adequate PULMONARY ARTERIES: No filling defects are identified within the pulmonary arteries. THORACIC AORTA: Multifocal atherosclerotic calcifications are present. There is no aneurysm. LUNGS AND PLEURA: Mild dependent atelectasis results in groundglass densities in the posterior lung. There is mild centrilobular emphysema. There is no pleural thickening or pleural effusion. MEDIASTINUM: There is a small sliding hiatal hernia involving gastric cardia. CORONARY ARTERY CALCIFICATION: Present CHEST WALL/AXILLA: No axillary or internal mammary lymphadenopathy. UPPER ABDOMEN: Unremarkable BONES: Increased lucency with coarse calcification is present within the lower thoracic vertebral body, probably T12, consistent with a benign vertebral hemangioma. CT/CT angio chest PE protocol IMPRESSION: There are no filling defects to suggest a pulmonary embolus. There is a small sliding hiatal hernia. Fleischner guidelines were followed. Electronically signed by: Holger Dooley MD 07/19/2025 04:03 PM [facility]
--- NOTE | ~2025-07-19 | CT_ITS ---
EXAMINATION: CT HEAD WITHOUT IV CONTRAST HISTORY: syncope. TECHNIQUE: Unenhanced helical CT of the head was performed per standard departmental protocol. Coronal and sagittal reformats of the head were also evaluated. One or more of the following techniques was used for dose reduction: Automated exposure control, adjustment of the mA and/or kV according to patient size, use of iterative reconstruction technique. DLP: 623 mGy-cm COMPARISON: There are no prior studies available for comparison. FINDINGS: BRAIN: There is mild prominence of the ventricular system and cortical sulci, consistent with atrophy. Periventricular and subcortical white matter hypodensities are noted which are nonspecific, but often seen in the setting of small vessel ischemic disease. There is no mass effect or midline shift. No intra- or extra-axial fluid collections are identified. SINUSES: The visualized paranasal sinuses are clear. The mastoid air cells and middle ear cavities are well pneumatized. ORBITS: The visualized orbits are unremarkable. BONES/SOFT TISSUES: The extracranial soft tissues are unremarkable. The calvarium is intact. No suspicious lytic or sclerotic lesions. CT/CT head/brain wo IV con IMPRESSION: No acute intracranial abnormality. Electronically signed by: Alex Tobin MD 07/19/2025 03:33 PM [facility] [place]
--- NOTE | 2025-07-19 12:14 | ED_ITS ---
HPI - General Adult General Chief complaint: Syncope Stated complaint: upper respiratory symptoms, syncopal episode Time Seen by Provider: 07/19/25 12:14 Source: patient, family (patient's daughter provided additional history and confirmed the history provided by the patient. ) and EMS Mode of arrival: EMS Limitations: no limitations History of Present Illness ED Provider: Rashida Santiago PA-C HPI narrative: Patient is an 85 year old assigned female at with a history of HTN and osteoporosis presenting to the emergency department today after a syncopal episode at [facility]. Patient states that she started feeling unwell with lightheadedness and nausea and then she felt like she was going to pass out. Patient's daughter states that she helped the patient into a chair and the patient lost consciousness for a very brief period then woke up and felt fine. Patient states that she has been dealing with intermittent right ear fullness for several weeks and it feels full now. Patient states that over the last week she has noticed that her voice has changed and her throat has felt more sore than usual. Patient states that she has no other complaints and she feels otherwise fine. Patient denies any other complaints at this time. Relieving factors: none Exacerbating factors: none Associated symptoms: syncope Related Data Home Medications ?Medication ?Instructions ?Recorded ?Confirmed albuterol sulfate 90 mcg/actuation 2 puff inhalation Q 4H PRN 12/27/24 04/19/25 aerosol inhaler Previous Rx's ?Medication ?Instructions ?Recorded cetirizine 10 mg tablet (Zyrtec) 10 mg PO DAILY 30 day s #30 tabs 04/19/25 levothyroxine 112 mcg tablet 112 mcg PO DAILY 90 days #90 tabs 04/19/25 lisinopril 30 mg tablet 30 mg PO DAILY 90 days #90 t abs 04/19/25 omeprazole 40 mg capsule,delayed 40 mg PO DAILY 90 day s #90 caps 04/19/25 release umeclidinium 62.5 mcg-vilanterol 1 ea inhalation DAILY #60 ea 05/30/25 25 mcg/actuation powdr for inhalation (Anoro Ellipta) cholecalciferol (vitamin D3) 50 50 mcg PO DAILY 90 day s #90 tabs 07/18/25 mcg (2,000 unit) tablet Allergies Allergy/AdvReac Type Severity Reaction Status Date / Time codeine Allergy Severe Unknown Verified 07/19/25 12:26 tramadol Allergy Severe Unknown Verified 07/19/25 12:26 Review of Systems 2 Constitutional: Constitutional: Reports as per HPI Eyes: Eyes: Reports as per HPI ENT: Reports as per HPI Cardiovascular: Cardiovascular: Reports as per HPI Respiratory: Respiratory: Reports as per HPI Gastrointestinal: Gastrointestinal: Reports as per HPI Genitourinary: Genitourinary: Reports as per HPI Musculoskeletal: Musculoskeletal: Reports as per HPI Integumentary/Breasts: Skin/Breast: Reports as per HPI Neurologic: Reports as per HPI Psychiatric: Psychiatric: Reports as per HPI Endocrine: Endocrine: Reports as per HPI Hematologic/Lymphatic: Hematologic/Lymphatic: Reports as per HPI Allergic/Immunologic: Allergic/Immunologic: Reports as per HPI [facility] Past Medical History Attestation statement: The following information was validated with the patient. (all information validated with the patient's daughter) Source: old records reviewed, obtained from family (patient's daughter provided additional history and confirmed the history provided by the patient. ) and nursing notes reviewed Medical History NAFLD (nonalcoholic fatty liver disease) Arthritis of right knee Dupuytren's contracture of both hands Acid reflux H/O thyroid disease COPD (chronic obstructive pulmonary disease) Family History Family History Paternal Grandfather FH: mental illness Social History Social History Housing: House Patient Tobacco Use Status: Never used Tobacco e-Cigarette/Vaping Use: Never Used Second Hand Smoke Exposure: No Advance Directives: No Advance Directives Information Provided: Yes service: No Current occupational status: retired Current occupational exposures/hazards: No Cognitive needs: No Hearing needs: No Vision needs: Yes Physical Exam ED Vital Signs: Vital Signs - 24 hr 07/19/25 12:21 07/19/25 14:41 Temperature 97.5 F 98.4 F Pulse Rate 89 100 Respiratory Rate 18 22 H Blood Pressure 135/79 162/65 H Pulse Oximetry 97 97 Oxygen Delivery Method Room Air Room Air BMI result Body Mass Index 22.9 Const General: cooperative, no acute distress, alert and awake Nutritional Appearance: well nourished Orientation/consciousness: patient oriented x3 HENMT Head: Yes normal to inspection and Yes atraumatic Ears: hearing grossly normal bilaterally, external ears normal and TM abnormal (mild fluid behind right TM) General nose exam: Normal external nose present, no nasal discharge noted and no epistaxis Face and sinus: Yes normal facial exam, No abrasion and No laceration Mouth: Normal oral and palatal mucosa present, no drooling and no muffled voice Eyes General: appearance normal, both eyes and all related structures Periorbital: periorbital findings normal Eyelids: Yes eyelids normal Conjunctivae: conjunctivae normal Pupils: Equal, round and reactive pupils present EOM: EOMs intact bilaterally Neck Neck: Yes normal visual inspection and Yes full ROM Resp Effort & Inspection: normal respiratory effort and able to speak in complete sentences Neuro General: patient oriented x3, moves all extremities and CN's II-XI intact bilaterally Cranial nerves: Yes Equal, round and reactive pupils present Cognition (Neuro): normal cognition Extrem General: Yes normal to inspection, Yes full ROM and Yes capillary refill normal Psych Appearance: grossly normal Mental Status: mental status grossly normal Affect: normal affect Attitude: cooperative Thought process: Normal thought process present Thought content: Normal thought content present Insight: Good insight present (Psych) Medications Administered Discontinued Medications Generic Name Dose Route Start Last Admin Trade Name Freq PRN Reason Stop Dose Admin Iohexol 100 ml 07/19/25 14:35 07/19/25 14:36 Iohexol 350 Mg/Ml 100 Ml Infus..Btl IV 07/19/25 14:36 65 ml ONCE ONE Administration Medical Decision Making Medical Decision Making [facility] Narrative: Patient is an 85 year old assigned female at with a history of HTN and osteoporosis presenting to the emergency department today after a syncopal episode at [facility] complaining of right ear fullness and a sore throat. Patient's physical exam was as noted in the physical exam portion of this note. Patient's blood work showed an elevated TSH of 4.62 with a Free T4 of 1.51 and a pro BNP of 330.2 which is considered normal in the patients age range. Patient's labs were otherwise unremarkable. Patient's EKG was unremarkable. Patient's CT head showed no acute process. Patient's CT soft tissue neck showed no acute process but did show incidental findings including: Medialization of the right true vocal cord, suggesting possible recess or paralysis Peripherally calcified nodule in the right lower thyroid region measuring 1.4 x 1.6 x 1.9 cm Moderate to severe bilateral carotid bulb calcifications present, resulting in approximate 50-60% ICA stenosis on the right, an approximate 30% stenosis on the left. Patient's CT PE study of the chest showed no acute process. I am suspicious the patient's incident today is secondary to vasovagal syncope with a viral illness. I explained my physical exam findings as well as all test results to the patient and the patient's daughter. I answered all questions asked by the patient and the patient's daughter. I stressed the importance of the patient taking her medication as directed (either prescribed or as the over the counter packaging recommends). I stressed the importance of the patient following up with her primary care provider. I stressed the importance of the patient returning to the emergency department immediately if her symptoms were to worsen or if she were to develop any dizziness, shortness of breath, difficulty breathing, chest pain, blurry vision, loss of vision, nausea, vomiting, abdominal pain, fever, chills, back pain, or any other complaints. Patient and the patient's daughter verbalized agreement and understanding with this treatment plan and discharge. Differential Diagnosis Differential Diagnoses: The differential diagnosis associated with the presentation includes Syncope Vasovagal episode Right sided ear fullness Viral illness Admission/Observation Consideration of admission/observation: Escalation of care including admission/observation considered Patient would have been admitted to the hospital had her work up had any findings where hospital admission was appropriate and her clinical presentation warranted hospital admission. Lab Data [facility] Lab Attestation statement: I reviewed the patient's lab results. My interpretation of these results are in the [facility] Rationale portion of this note. 07/19/25 12:46 07/19/25 12:46 Labs: Lab Results 07/19/25 07/19/25 Range/Units 12:46 14:43 WBC 10.1 (4.8-10.8) X10*3/uL RBC 4.78 (4.20-5.50) X10*6/uL Hgb 13.2 (12.0-16.0) g/dl Hct 41.3 (37.0-47.0) % MCV 86.4 (80.0-98.0) fL MCH 27.6 (27.0-33.0) pg MCHC 32.0 (31.0-35.0) g/dl RDW 15.4 (11.0-16.0) % Plt Count 238 (160-400) X10*3/uL MPV 9.7 (9.4-12.3) fL Immature Gran % (Auto) 0.4 (0.0-0.4) % Neut % (Auto) 85.8 H (45-73) % Lymph % (Auto) 4.9 L (20-40) % Sampson % (Auto) 8.5 (2-11) % Eos % (Auto) 0.1 (0-4) % Baso % (Auto) 0.3 (0-2) % Lymph # (Auto) 0.5 L (1.2-4.9) X10*3/uL Sampson # (Auto) 0.9 (0.1-1.2) X10*3/uL Eos # (Auto) 0.0 (0.0-0.4) X10*3/uL Baso # (Auto) 0.0 (0.0-0.2) X10*3/uL Abs Immat Gran (auto) 0.04 H (0.00-0.03) X10*3/uL Absolute Neuts (auto) 8.7 H (2.0-8.3) x10*3/uL Absolute Nucleated RBC 0.000 (0.0-0.012) X10*3/uL Nucleated RBC % (auto) 0.0 (0.0-0.2) /100WBC PT 13.9 H (11.2-13.5) SEC INR 1.1 (0.9-1.1) Sodium 140 (135-145) mmol/L Potassium 4.0 (3.3-5.1) mmol/L Chloride 106 (96-108) mmol/L Carbon Dioxide 24 (22-29) mmol/L Anion Gap 14 (12-20) BUN 16 (9-16) mg/dL Creatinine 0.91 (0.5-1.4) mg/dL Estim Creat Clear Calc 39.9 Estimated GFR 59 Random Glucose 122 H (60-115) mg/dL Calcium 9.5 (8.4-10.2) mg/dL Magnesium 1.6 (1.6-2.6) mg/dL Total Bilirubin 0.7 (0.0-1.0) mg/dL AST 33 H (5-31) U/L ALT 33 H (0-31) U/L Alkaline Phosphatase 84 (39-117) U/L Troponin I High Sens 3.8 (<3.5-17.0) ng/L NT-Pro-B Natriuret Pep 330.2 H (<300) pg/mL Total Protein 7.8 (6.5-8.0) g/dL Albumin 4.1 (3.5-5.0) g/dL TSH 4.62 H (0.32-4.0) uIU/mL Free T4 1.51 (0.71-1.85) ng/dL Influenza Type A (PCR) NEGATIVE (Negative) Influenza Type B (PCR) NEGATIVE (Negative) RSV RNA Qual (PCR) NEGATIVE (Negative) SARS-CoV-2 RNA (RT-PCR) NEGATIVE (Negative) S. pyogenes GrpA TINO Negative (Negative) Independent Interpretation I performed an independent interpretation of an: EKG and CT Scan Interpretation: My interpretation is in agreement with the radiologist's impression of these imaging studies as written below. EXAMINATION: CT ANGIOGRAM CHEST CLINICAL INFORMATION: Syncope COMPARISON: None available. TECHNIQUE: Multiple axial images were obtained through the chest after the administration of 65 mL of Omnipaque 350 intravenous contrast. Extensive vascular post-processing including two-dimensional and three- dimensional reformatted images were created and reviewed on an independent workstation. This CT examination was performed using dose optimization techniques as appropriate, variously including the following: *Automated exposure control *Adjustment of mA and/or kV according to patient size (this includes techniques or standardized protocols for targeted exams where dose is matched to indication/reason for exam; i.e. extremities or head) *Use of iterative reconstruction technique FINDINGS: QUALITY OF STUDY/CONTRAST BOLUS: Adequate PULMONARY ARTERIES: No filling defects are identified within the pulmonary arteries. THORACIC AORTA: Multifocal atherosclerotic calcifications are present. There is no aneurysm. LUNGS AND PLEURA: Mild dependent atelectasis results in groundglass densities in the posterior lung. There is mild centrilobular emphysema. There is no pleural thickening or pleural effusion. MEDIASTINUM: There is a small sliding hiatal hernia involving gastric cardia. CORONARY ARTERY CALCIFICATION: Present CHEST WALL/AXILLA: No axillary or internal mammary lymphadenopathy. UPPER ABDOMEN: Unremarkable BONES: Increased lucency with coarse calcification is present within the lower thoracic vertebral body, probably T12, consistent with a benign vertebral hemangioma. CT/CT angio chest PE protocol IMPRESSION: There are no filling defects to suggest a pulmonary embolus. There is a small sliding hiatal hernia. Fleischner guidelines were followed. Electronically signed by: Holger Dooley MD 07/19/2025 04:03 PM [facility] Dictated By: Holger Dooley MD Signed By: Electronically signed by Holger Dooley MD 07/19/25 1603 EXAMINATION: CT HEAD WITHOUT IV CONTRAST HISTORY: syncope. TECHNIQUE: Unenhanced helical CT of the head was performed per standard departmental protocol. Coronal and sagittal reformats of the head were also evaluated. One or more of the following techniques was used for dose reduction: Automated exposure control, adjustment of the mA and/or kV according to patient size, use of iterative reconstruction technique. DLP: 623 mGy-cm COMPARISON: There are no prior studies available for comparison. FINDINGS: BRAIN: There is mild prominence of the ventricular system and cortical sulci, consistent with atrophy. Periventricular and subcortical white matter hypodensities are noted which are nonspecific, but often seen in the setting of small vessel ischemic disease. There is no mass effect or midline shift. No intra- or extra-axial fluid collections are identified. SINUSES: The visualized paranasal sinuses are clear. The mastoid air cells and middle ear cavities are well pneumatized. ORBITS: The visualized orbits are unremarkable. BONES/SOFT TISSUES: The extracranial soft tissues are unremarkable. The calvarium is intact. No suspicious lytic or sclerotic lesions. CT/CT head/brain wo IV con IMPRESSION: No acute intracranial abnormality. Electronically signed by: Alex Tobin MD 07/19/2025 03:33 PM EST Dictated By: Alex Tobin MD Signed By: Electronically signed by Alex Tobin MD 07/19/25 1533 EXAMINATION: CT SOFT TISSUE NECK WITH CONTRAST CLINICAL INFORMATION: Voice change, pain. COMPARISON: None available. TECHNIQUE: Following the intravenous administration of 100 mL of Omnipaque 350 intravenous contrast, helical imaging was performed in the axial plane with generation of coronal and sagittal reformatted images. This CT examination was performed using dose optimization techniques as appropriate, variously including the following: *Automated exposure control *Adjustment of mA and/or kV according to patient size (this includes techniques or standardized protocols for targeted exams where dose is matched to indication/reason for exam; i.e. extremities or head) *Use of iterative reconstruction technique FINDINGS: Lymph Nodes: -No abnormal lymphadenopathy within the neck. Carotid Sheath Structures: -Moderate to severe bilateral carotid bulb calcifications are present, resulting in an approximate 50-60% stenosis of the right ICA after the origin, and approximately a 30% stenosis of the left ICA. -Subacute jugular veins are patent. Salivary Glands: -Normal. Tongue Base/Floor of Mouth: -Normal Mucosal Space: -Grossly normal without evidence of enhancing mass or inflammation. The epiglottis is normal. The aryepiglottic folds appear normal. The piriform sinuses and vallecula appear normal. -The hypopharyngeal structures appear normal. -The tonsillar pillar soft tissues appear normal. -The soft palate appears normal. Visceral Space: -Thyroid gland: Majority of the thyroid is atrophic. There is a rim calcified nodule in the right inferior thyroid region measuring 1.4 x 1.6 x 1.9 cm. -Larynx: There is medialization of the right true vocal cord, suggesting paresis and/or paralysis. Direct visualization recommended. The left true vocal cord is abducted. The laryngeal ventricle is grossly symmetric. The laryngeal inlet is normal. -The subglottic trachea is normal. -The cervical esophagus is normal. Retropharangeal Space: -Normal. Parapharyngeal Fat Planes: -Normal. Director Of Culture Spaces: -Normal. Anterior Cervical Space: -Normal. Imaged Intracranial Contents: -Refer to the dedicated CT head performed concurrently. Globes and Orbits: -Normal. Bilateral lens replacements present. Paranasal Sinuses/Mastoids/Tympanic Spaces: -Normally aerated bilaterally. Lung Apices and Superior Mediastinal Structures: -Refer to the dedicated CT chest performed concurrently. Bony Structures: -No suspicious bone lesions. No fractures. -TM joints demonstrate moderate degenerative changes on the right. -Degenerative changes at the atlantoaxial joint, with mild spondylosis of the cervical spine most significant at C6-7. CT/CT soft tissue neck w IV con IMPRESSION: 1. No acute findings in the neck. No mass or abnormal lymph nodes present. No gross inflammation present. 2. There appears to be medialization of the right true vocal cord, suggesting possible recess or paralysis. Direct visualization recommended if this is a clinical suspicion. 3. Atrophic thyroid gland. There is a peripherally calcified nodule in the right lower thyroid region measuring 1.4 x 1.6 x 1.9 cm. 4. Moderate to severe bilateral carotid bulb calcifications present, resulting in approximate 50-60% ICA stenosis on the right, an approximate 30% stenosis on the left. 5. Additional ancillary findings as discussed in the body of the report. Electronically signed by: Shukri Moeller MD 07/19/2025 03:48 PM [facility] Dictated By: Shukri Moeller MD Signed By: Electronically signed by Shukri Moeller MD 07/19/25 1548 I independently interpreted this EKG and am in agreement with the below findings: Vent. Rate: 89 BPM Atrial Rate: 89 BPM P-R Int: 144 ms QRS Dur: 128 ms QT Int: 400 ms P-R-T Axes: 74 97 37 degrees QTcB Int: 486 ms Sinus rhythm with frequent Premature ventricular complexes Right bundle branch block No previous ECGs available Electronically Signed By: Lewis Domingo Dictated By: Lewis Domingo MD Signed By: Electronically signed by Lewis Domingo MD 07/19/25 0008 Radiology Impression Discussion of test interpretation with radiology: I have reviewed the radiologist's reading. Independent Historian Clinical information obtained from an independent historian. History obtained from or confirmed by: EMS (EMS provided additional history and confirmed the history provided by the patient. ) and Other (Patient's daughter provided additional history and confirmed the history provided by the patient. ) Critical Care Time Critical Care Time Critical Care Time: Yes Total Critical Care Time: 37 Attestation: I spent 37 minutes of Critical Care Time with this patient. This does not include time spent on separately reported billable procedures. Discharge Plan Discharge Clinical Impression: Syncope, vasovagal, Ear fullness, Pharyngitis Patient Disposition: Home, Self-Care Instructions: Syncope (DC), Pharyngitis (ED) Additional Instructions: Your work up today was reassuring there is no EMERGENT cause for your syncopal episode. I am suspicious that you had a vasovagal syncopal episode and have recovered well from it. Your work up show incidental findings that you must follow up with your primary care provider about including: * Medialization of the right true vocal cord suggesting possible recess vs. paralysis. * A calcified thyroid nodule on the lower right side measuring 1.4 x 1.6 x 1.9 cm with mildly elevated thyroid stimulating hormone levels at 4.62. * Moderate to severe bilateral carotid bulb calcifications present, resulting in approximate 50-60% ICA stenosis on the right, an approximate 30% stenosis on the left. IF you are prescribed home medications and/or you are taking over the counter medications at home - it is very important you continue to do so as prescribed / directed unless told otherwise by a healthcare provider. Follow up with your primary care provider. Do your best to stay well hydrated and rest. Return to the emergency department immediately if your symptoms worsen or if you develop any numbness, tingling, dizziness, shortness of breath, difficulty breathing, chest pain, blurry vision, loss of vision, nausea, vomiting, abdominal pain, fever, chills, back pain, or any other complaints. Please see the information below about our Patient Portal. If you are not yet enrolled in the [facility] Patient Portal, you will receive an enrollment email invitation following your visit to any [facility] setting. You may also self-enroll in the Patient Portal by visiting our website: [email or web address] The following information is required to access the Patient Portal: - Your [facility] Medical Record Number - Your personal home email address (must match what is in your electronic medical record, Registration staff can assist with this) - Name - Date of Capabilities of the Patient Portal: - Message some providers - View upcoming appointments - Access your health summary, medical history, and visit history - View current conditions and allergies - View procedure and lab results - View your medications, including guidelines, side effects, and precautions - Complete pre-appointment questionnaires requested by your provider - Ready summary reports of your office visits and procedures To access the Patient Portal Mobile [place], follow these directions: - Search [employer] in the [place] Store or [employer] Store - Download the [place] - Search for [facility] - Enter your login/password Prescriptions: No Action Anoro Ellipta 62.5-25 mcg/actuation blister with device 1 ea inhalation DAILY Qty: 60 3RF albuterol sulfate 90 mcg/actuation HFA aerosol inhaler 2 puff inhalation Q4H PRN levothyroxine 112 mcg tablet 112 mcg PO DAILY 90 Days Qty: 90 1RF lisinopril 30 mg tablet 30 mg PO DAILY 90 Days Qty: 90 1RF omeprazole 40 mg capsule,delayed release(DR/EC) 40 mg PO DAILY 90 Days Qty: 90 1RF cetirizine [Zyrtec] 10 mg tablet 10 mg PO DAILY 30 Days Qty: 30 0RF cholecalciferol (vitamin D3) 50 mcg (2,000 unit) tablet 50 mcg PO DAILY 90 Days Qty: 90 3RF Referrals: Clotilde Villarreal CNP [Primary Care Provider, Internal Medicine] Print Language: Macanese
--- NOTE | 2025-07-19 12:20 | ECG_ITS ---
Test Reason : near syncope Blood Pressure : */* mmHG Vent. Rate : 89 BPM Atrial Rate : 89 BPM P-R Int : 144 ms QRS Dur : 128 ms QT Int : 400 ms P-R-T Axes : 74 97 37 degrees QTcB Int : 486 ms Sinus rhythm with frequent Premature ventricular complexes Right bundle branch block Abnormal ECG No previous ECGs available Referred By: Rashida Santiago Electronically Signed By: Lewis Domingo
[2025-07-19 12:21] VITALS: BP 135/79; PULSE 89; RESP 18; TEMP 36.4; O2SAT 97
[2025-07-19 12:24] VITALS: BP 170/90; PULSE 90; O2SAT 98; BMI 22.9
[2025-07-19 12:53] LABS: MANUAL DIFF FLAG NO
[2025-07-19 12:56] LABS: Hematocrit 41.3 % (37.0-47.0); Hemoglobin 13.2 g/dl (12.0-16.0); Imm Gran Abs Auto 0.04 X10*3/uL (0.00-0.03); Imm Gran Pct Auto 0.4 % (0.0-0.4); Lymphocytes Absolute Auto 0.5 X10*3/uL (1.2-4.9); Mean Corpuscular HGB Conc 32.0 g/dl (31.0-35.0); Mean Corpuscular Hemoglobin 27.6 pg (27.0-33.0); Mean Corpuscular Volume 86.4 fL (80.0-98.0); NRBC Abs Auto 0.000 X10*3/uL (0.0-0.012); NRBC Pct Auto 0.0 /100WBC (0.0-0.2); Platelet Count 238 X10*3/uL (160-400); Red Blood Count 4.78 X10*6/uL (4.20-5.50); White Blood Count 10.1 X10*3/uL (4.8-10.8)
[2025-07-19 13:00] LABS: INTERNATIONAL NORM RATIO 1.1 (0.9-1.1); Prothrombin Time 13.9 SEC (11.2-13.5)
[2025-07-19 13:10] LABS: Alanine Aminotransferase 33 U/L (0-31); Albumin Level 4.1 g/dL (3.5-5.0); Alkaline Phosphatase 84 U/L (39-117); Anion Gap 14 (12-20); Aspartate Amino Transferase 33 U/L (5-31); Blood Urea Nitrogen 16 mg/dL (9-16); Calcium 9.5 mg/dL (8.4-10.2); Carbon Dioxide 24 mmol/L (22-29); Chloride 106 mmol/L (96-108); Creatinine Clr Calc Pharmacy 39.9; Estimated Glomerular Filt Rate 59; Magnesium 1.6 mg/dL (1.6-2.6); Potassium 4.0 mmol/L (3.3-5.1); Sodium 140 mmol/L (135-145); Total Protein 7.8 g/dL (6.5-8.0)
[2025-07-19 13:17] LABS: Troponin-I High Sensitivity 3.8 ng/L (<3.5-17.0)
[2025-07-19 13:41] LABS: NT Pro B Type Natriuretic Pept 330.2 pg/mL (<300)
[2025-07-19] MEDS: iohexoL 350 MG/ML 100 ML INFUS..BTL IV (14:36)
[2025-07-19 14:37] LABS: Resp Syncy Virus RNA Qual PCR NEGATIVE (Negative); SARS COV2 PCR INHOUSE NEGATIVE (Negative)
[2025-07-19 14:41] VITALS: BP 162/65; PULSE 100; RESP 22; TEMP 36.9; O2SAT 97
[2025-07-19 14:57] LABS: IDNOW Serial# 55D5AD1C; Strep A Nucleic Acid Negative (Negative)
[2025-07-19 16:21] LABS: Free T4 (Free Thyroxine) 1.51 ng/dL (0.71-1.85)
[2025-07-19 16:50] VITALS: BP 162/65; PULSE 90; RESP 20; TEMP 36.9; O2SAT 98
== END 2025-07-19 16:51 | disposition home or self-care (01) ==
PROVIDERS: Physician Assistant Medical; Emergency Provider Emergency Medicine; PCP Nurse Practitioner Family
DX: R55 Syncope and collapse (principal); J02.9 Acute pharyngitis, unspecified; H93.8X9 Other specified disorders of ear, unspecified ear; I10 Essential (primary) hypertension; R11.0 Nausea; I45.10 Unspecified right bundle-branch block; R94.31 Abnormal electrocardiogram [ECG] [EKG]; R06.02 Shortness of breath; Z79.82 Long term (current) use of aspirin; Z03.818 Encounter for observation for suspected exposure to other biological agents ruled out
CPT/HCPCS: 36415; 70450; 70491; 71275; 80053; 83735; 83880; 84439; 84443; 84484; 85025; 85610; 87637; 87651; 93005; 99284; Q9967

== ENCOUNTER → 2025-07-19 12:20 | Outpatient (BNV) | payer MEDICARE, SELFPAY | PROVIDERS: PCP Nurse Practitioner Family; Visit Provider Internal Medicine Cardiovascular Disease | DX: I49.3 Ventricular premature depolarization (principal); I45.10 Unspecified right bundle-branch block | CPT/HCPCS: 93010 ==

== ENCOUNTER → 2025-07-19 13:42 | Outpatient (BNV) | payer MEDICARE, SELFPAY | PROVIDERS: PCP Nurse Practitioner Family; Visit Provider Radiology Diagnostic Radiology | DX: R55 Syncope and collapse (principal) | CPT/HCPCS: 70450; 70491 ==

== ENCOUNTER 2025-08-01 10:29 | Outpatient (AMB) | payer MEDICARE, SELFPAY ==
--- NOTE | 2025-08-01 10:30 | A.OFFPC_ITS ---
Vital Signs 08/01/25 10:35 Height 5 ft 5 in Weight 133 lb 2 oz BMI 22.2 BP 135/61 Blood Pressure Location Rt brachial Position Sitting Respiration 16 Pulse 84 Pulse Source Pulse Oximeter Temp 97.7 F Temp Source Oral Pulse Oximetry (%) 98 Oxygen Delivery Method Room Air Intake Visit Reasons: [facility] Int[facility] Note: patient here for ED follow up for [facility] Atv Mechanic Required: No Accompanied by: Daughter Is last menstrual period known: No Post menopausal: No Patient : No Allergies codeine Allergy (Severe, Verified 08/01/25 10:43) Unknown tramadol Allergy (Severe, Verified 08/01/25 10:43) Unknown Medication List - Last Reconciled 08/01/25 by Clotilde Villarreal CNP albuterol sulfate 90 mcg/actuation 2 puffs inhalation Q4H PRN cetirizine (Zyrtec) 10 mg PO DAILY 30 days cholecalciferol (vitamin D3) 50 mcg PO DAILY 90 days levothyroxine 112 mcg PO DAILY 90 days lisinopril 30 mg PO DAILY 90 days omeprazole 40 mg PO DAILY 90 days umeclidinium-vilanterol 62.5-25 mcg/actuation (Anoro Ellipta) 1 ea inhalation DAILY Tobacco use date assessed: 08/01/25 Fall risk assessment: No Falls in past year Last assessed Fall Risk: 08/01/25 Dental Screening Dental Screen Date: 08/01/25 Did you have a dental visit in the last 12 months?: Yes Did you have a dental problem in the last 6 months where you did not have access to dental care?: No Was dental information given to patient?: Patient has dentist HPI HPI Comments History of Present Illness Details 85-year-old female, accompanied by her abi mercertalat, presents for ED discharge follow-up. She was evaluated at [facility] ED on 07/19/2025 for syncopal episode same day she presented to the hospital. Labs were benign except for slightly elevated TSH, is 4.62. EKG revealed sinus rhythm with frequent PVC and RBBB. CT head and chest were unrevealing. CT neck revealed the followin. No acute findings in the neck. No mas s or abnormal lymph nodes present. No gross inflammation present. 2. There appears to be medialization of the right true vocal cord, suggesting possible recess or paralysis. Direct visualization recommended if this is a clinical suspicion. 3. Atrophic thyroid gland. There is a pe ripherally calcified nodule in the right lower thyroid region measuring 1.4 x 1.6 x 1.9 cm. 4. Moderate to severe bilateral carotid bulb calcifications present, resulting in approximate 50-60% ICA stenosis on the right, an approximate 30% stenosis on the left. 5. Additional ancillary findings as disc ussed in the body of the report. Patient notes that she was flushed and clammy the day she presented to [facility] ED. She states that she did not lose consciousness. She denies symptoms of fainting, dizziness, or lightheadedness since discharged from the hospital. Reports intermittent pain to her right lateral upper arm for the past 2-3 weeks. She states that xray at the [facility] urgent Care 6 weeks ago revealed [id number], and was given cortisone injection which was effective until recently. She also reports red rash to her neck arms, and back which started 2 days after she was recently discharged from the ED. She states that the rash itches intermittently. She uses Benadryl as needed for makes her drowsy than less itchy. She uses moisturizing lotion occasionally. [facility] Medical History NAFLD (nonalcoholic fatty liver disease) Arthritis of right knee Dupuytren's contracture of both hands Acid reflux H/O thyroid disease COPD (chronic obstructive pulmonary disease) Family History Paternal Grandfather FH: mental illness Social History Housing: House Patient Tobacco Use Status: Never used Tobacco e-Cigarette/Vaping Use: Never Used Second Hand Smoke Exposure: No Patient : No service: No Current occupational status: retired Current occupational exposures/hazards: No Cognitive needs: No Hearing needs: No Vision needs: Yes Questionnaire Thrive Questionnaire Date Thrive assessed: 04/19/25 I am a: Parent/Caregiver What is your living situation today?: I have a steady place to live Within the past 12 months, did the food you bought not last and you didn't have the money to get more?: Never true Within the past 12 months, did you worry whether your food would run out before you got money to buy more?: Never true Do you have trouble paying for medicines?: No Do you have trouble getting transportation to medical appointments?: No Do you have trouble paying your heating and electricity bill?: No Do you have trouble taking care of your child, family member or friend?: No Do you have trouble with day-to-day activities such as bathing, preparing meals, shopping, managing finances, etc.?: No Are you currently unemployed and looking for a job?: No Are you interested in more education?: No Please select the resources that you would like help with: None Currently or been in a relationship where the following occur: No concerns reported THRIVE Score: 0 CLAUDE-7 AMB Questionnaire CLAUDE-7 Date CLAUDE - 7 assessed: 04/19/25 Source: Developed by Drs. Alex Macias, Deanne Cameron, Freddy Fish and colleagues, with an educational josh from [employer]. Review of Systems Const Details: Const Denies chills, Denies fatigue, Denies fever(s), Denies headache(s) and Denies weakness ENT Denies dizziness and Denies headache(s) Card Denies chest pain, Denies lightheadedness, Denies dyspnea and Denies other (Palpitations) Resp Denies cough, Denies dyspnea, Denies wheezing and Denies other ( shortness of breath) GI Denies abdominal pain, Denies melena, Denies hematochezia, Denies change in bowel habits, Denies dyspepsia and Denies nausea Denies hematuria and Denies dysuria Musc Reports as per HPI Skin/Breast Reports as per HPI Neuro Denies abnormal gait, Denies dizziness, Denies headache(s), Denies memory loss, Denies numbness, Denies Sensory deficit (Neuro), Denies tingling and Denies weakness Psych Denies anxiety, Denies depression, Denies memory loss Endo Denies cold intolerance, Denies fatigue, Denies heat intolerance, Denies polydipsia and Denies polyuria Aller/Immun Denies wheezing Physical exam (Primary Care) Vital Signs: Last Vital Signs Temp 97.7 F 08/01/25 10:35 Pulse 84 08/01/25 10:35 Resp 16 08/01/25 10:35 BP 135/61 08/01/25 10:35 Pulse Ox 98 08/01/25 10:35 Oxygen Delivery Method Room Air 08/01/25 10:35 BMI result Body Mass Index 22.2 Tobacco/Smoking Status: Tobacco use Status Tobacco use date assessed 08/01/25 08/01/25 10:38 Patient Tobacco Use Status Never used Tobacco 08/01/25 10:33 e-Cigarette/Vaping Use Never Used 08/01/25 10:33 Thrive Assessment: Date of Thrive Assessment Date Thrive assessed 04/19/25 08/01/25 10:33 Currently or been in a relationship where the following occur: No concerns reported Const Other: General: no acute distress and well developed Nutritional Appearance: well nourished Orientation/consciousness: patient oriented x3 HENMT Head: Yes normocephalic and Yes atraumatic Eyes General: appearance normal, both eyes and all related structures Pupils: Equal, round and reactive pupils present EOM: EOMs intact bilaterally Resp Effort & Inspection: normal respiratory effort Auscultation: clear to auscultation bilaterally Cardio Rate: regular rate Rhythm: regular rhythm Heart sounds: S1 normal heart sound present, S2 normal heart sound present, no gallops, no murmurs and no rubs GI Palpation (GI): No Abdominal aortic bruit present, Soft to palpation, nontender, No hepatosplenomegaly present and No Rebound tenderness present Auscultation: normal bowel sounds General: Yes no CVA tenderness Musc Tenderness to right upper/lateral arm adjacent to the shoulder, normal active and passive ROM of the right shoulder, no overt injury or trauma Skin General: warm and dry. Normal skin color. Normal skin turgor Lesions: no lesions Rashes: Small, red, round rash with healthy scabs noted to the neck, arms, and mostly on back. 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 There is a peripherally calcified nodule in the right lower thyroid region measuring 1.4 x 1.6 x 1.9 cm. Recent TSH is slightly elevated, 4.26, free T4 is normal. Normal exam of the thyroid gland. Will recheck TSH/T4. Referred to endocrinology for further workup. (2) Bilateral carotid artery stenosis: Code(s): I65.23 - Occlusion and stenosis of bilateral carotid arteries Category: Medical Plan: Recent CT neck revealed: Moderate to severe bilateral carotid bulb calcifications present, resulting in approximate 50-60% ICA stenosis on the rig ht, an approximate 30% stenosis on the left. Referred to vascular surgery for further workup. (3) RBBB: Code(s): I45.10 - Unspecified right bundle-branch block Category: Medical Plan: Recent EKG revealed sinus rhythm with frequent PVC and RBBB. EKG at the office today revealed normal sinus rhythm with RBB. Referred to cardiology for further workup. 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 Direct visualization recommended if this is a clinical suspicion. Referred to ENT for further workup. (5) Hospital discharge follow-up: Code(s): Z09 - Encounter for follow-up examination after completed treatment for con ditions other than malignant neoplasm Category: Medical Plan: Plan as above. (6) Rash: Code(s): R21 - Rash and other nonspecific skin eruption Category: Medical Plan: She also reports red rash to her neck arms, and back which started 2 days after she was recently discharged from the ED. She states that the rash itches intermittently. She uses Benadryl as needed for makes her drowsy than less itchy. She uses moisturizing lotion occasionally. Small, red, round rash with healthy scabs noted to the neck, arms, and mostly on back. No overt signs of infection. Hydroxyzine as prescribed. Instructed on the risks, benefits, and potential adverse reactions of the medication. Encouraged to to use good moisturizing l lotion such as Cetaphil or Lubriderm. Follow-up with worsening or new symptoms. Verbalized understanding and agreed with the plan. (7) Right arm pain: Code(s): M79.601 - Pain in right arm Category: Medical Plan: Reports intermittent pain to her right lateral upper arm for the past 2-3 weeks. She states that xray at the [facility] 6 weeks ago revealed [id number], and was given cortisone injection which was effective until recently. Tenderness to right upper/lateral arm adjacent to the shoulder, normal active and passive ROM of the right shoulder, no overt injury or trauma. May take Tylenol ibuprofen as needed for pain or discomfort. Warm/cool compresses encouraged. X-ray of right shoulder ordered. Follow-up with worsening or new symptoms. May referred to PT or ortho. Verbalized understanding and agreed with the plan. 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
[2025-08-01 10:35] VITALS: BP 135/61; PULSE 84; RESP 16; TEMP 36.5; O2SAT 98; BMI 22.2
== END 2025-08-01 11:32 | disposition home or self-care (01) ==
LOC: HO.HMCFM 10:30
PROVIDERS: PCP Nurse Practitioner Family; Visit Provider Nurse Practitioner Family
DX: E03.4 Atrophy of thyroid (acquired) (principal); I65.23 Occlusion and stenosis of bilateral carotid arteries; I45.10 Unspecified right bundle-branch block; Q31.8 Other congenital malformations of larynx; Z09 Encounter for follow-up examination after completed treatment for conditions other than malignant neoplasm; R21 Rash and other nonspecific skin eruption; M79.601 Pain in right arm

== ENCOUNTER → 2025-08-01 10:29 | Outpatient (BNVA) | payer MEDICARE, SELFPAY | PROVIDERS: PCP Nurse Practitioner Family; Visit Provider Nurse Practitioner Family | DX: Z09 Encounter for follow-up examination after completed treatment for conditions other than malignant neoplasm (principal); E03.4 Atrophy of thyroid (acquired); I65.23 Occlusion and stenosis of bilateral carotid arteries; I45.10 Unspecified right bundle-branch block; Q31.8 Other congenital malformations of larynx; R21 Rash and other nonspecific skin eruption; M79.601 Pain in right arm | CPT/HCPCS: 99212 ==

== ENCOUNTER 2025-08-02 08:21 | Outpatient (REF) | payer MEDICARE, SELFPAY ==
[2025-08-02 12:09] LABS: Free T4 (Free Thyroxine) 1.39 ng/dL (0.71-1.85)
== END 2025-08-02 08:22 ==
LOC: HO.WFDLDS 08:21
PROVIDERS: Visit Provider Nurse Practitioner Family
DX: Z13.29 Encounter for screening for other suspected endocrine disorder (principal); R79.89 Other specified abnormal findings of blood chemistry
CPT/HCPCS: 36415; 84439; 84443

== ENCOUNTER 2025-08-02 08:50 | Outpatient (REF) | payer MEDICARE, SELFPAY ==
--- NOTE | ~2025-08-02 | XR_ITS ---
EXAMINATION: XR SHOULDER, RIGHT CLINICAL INFORMATION: M79.601 - Pain in right arm COMPARISON: None available. TECHNIQUE: AP view in neutral internal rotation and Y-view projections of the right shoulder. FINDINGS: No acute fracture or dislocation. Degenerative acromioclavicular joint. Osteopenia versus osteoporosis. No lytic or blastic lesions. No soft tissue calcifications XR/XR shoulder RT min 2V IMPRESSION: Degenerative changes, acromioclavicular joint. Electronically signed by: Dheearj Jerry MD 08/02/2025 09:51 AM EST
--- NOTE | ~2025-08-02 | MM_ITS ---
EXAMINATION: DXA BONE DENSITY AXIAL HISTORY: M81.0 - Age-related osteoporosis without current pathological fracture TECHNIQUE: [employer] Dual energy absorptiometry (DEXA) of the lumbar spine, total left hip, and femoral neck was performed. COMPARISON: None FINDINGS: The bone mineral density of the lumbar spine is 0.954 g/cm2, corresponding to a T-score of -1.9, and a Z-score of 0.2. This is indicative of osteopenia. The bone mineral density of the left total hip is 0.713 g/cm2, corresponding to a T-score of -2.3, and a Z-score of 0.1. This is indicative of osteopenia. The bone mineral density of the left femoral neck is 0.821 g/cm2, corresponding to a T-score of -1.6, and a Z-score of 1.0. This is indicative of osteopenia. FRACTURE RISK: The FRAX index suggests a ten year probability of major osteoporotic fracture of 15.4%, and of hip fracture 5%. MM/XR DEXA axial skeleton IMPRESSION: Based on bone mineral density, and according to World Health Organization (WHO) criteria, the diagnosis is consistent with osteopenia based on lowest T score of -2.3 in the left total femur. Treatment Recommendations: NOF guidelines recommend consideration for treatment in postmenopausal women and men age 50 and older presenting with the following: -A hip or vertebral (clinical or morphometric) fracture. -T-score less than or equal to -2.5 at the femoral neck or spine after appropriate evaluation to exclude secondary causes. -Low bone mass at the hip or spine and a 10-year fracture probability by FRAX of greater than or equal to 3% for hip fracture or greater than or equal to 20% for major osteoporotic fracture based on the [place] adapted WHO algorithm. Other Recommendations: All treatment decisions require clinical judgment and consideration of individual patient factors, including patient preferences, comorbidities, previous drug use, risk factors not captured in the FRAX model (e.g. frailty, falls, vitamin D deficiency, increased bone turnover, interval significant decline in bone density) and possible under or overestimation of fracture risk by FRAX. Additional medical evaluation for secondary cause of low bone mineral density may be appropriate. FUTURE SCAN RECOMMENDATION: People with diagnosed cases of osteoporosis or at high risk for fracture should have regular bone mineral density tests. For patients eligible for Medicare, routine testing is allowed once every 2 years. The testing frequency can be increased to one year for patients who have rapidly progressing disease, those who are receiving or discontinuing medical therapy to restore bone mass, or have additional risk factors. Statistically, 68% of repeat scans fall within 1 SD (+/- 0.010 g/cm2 for AP spine L1-L4) and 1 SD (+/- 0.012 g/cm2 for femur total) FRAX is a trademark of the [employer] [facility] [employer], a World Health Organization (WHO) Collaborating Center. Electronically signed by: Roxana Toledo MD 08/02/2025 09:27 AM [facility]
== END 2025-08-02 08:51 | disposition home or self-care (01) ==
LOC: HO.MAMMO 08:50
PROVIDERS: PCP Nurse Practitioner Family; Visit Provider Nurse Practitioner Family
DX: M81.0 Age-related osteoporosis without current pathological fracture (principal); M79.601 Pain in right arm; R79.89 Other specified abnormal findings of blood chemistry; Z13.29 Encounter for screening for other suspected endocrine disorder
CPT/HCPCS: 36415; 73030; 77080; 84439; 84443

== ENCOUNTER → 2025-08-02 09:00 | Outpatient (BNV) | payer MEDICARE, SELFPAY | PROVIDERS: PCP Nurse Practitioner Family; Visit Provider Radiology Diagnostic Radiology | DX: E28.39 Other primary ovarian failure (principal); M19.011 Primary osteoarthritis, right shoulder | CPT/HCPCS: 73030; 77080 ==